=== PATIENT | female | born 1995 | race Caucasian/White ===

== ENCOUNTER 2025-05-26 22:05 | Observation (INO) | payer MEDICAID, SELFPAY ==
--- OUTSIDE RECORDS SUMMARY | 2025-05-07 10:45 | XMS_ITS | Encounter Summary ---
Author Organization [place] [address] Care Team Providers Care Corporate Webmaster Name Role Phone Dotty Lo MD Primary Care Provider [phone] Reason for Visit * Reason Comments Abdominal Pain Emesis Encounter Details Date Type Department Care Team (Late st Contact Info) Description 05/07/2025 10:45 AM EST Office Visit [facility] [address] [place] [address] [place]a horner E, DO [address] [place] [address] Viral gastroenteritis (Primary Dx); Nausea Social History Tobacco Use Types Packs/Day Years Used Date Smoking Tobacco: Former Cigarettes 0.3 13.9 0 06/2006 - 05/2020 Passive Smoke Exposure: Past Smokeless Tobacco: Never Comments: 2-3 cigarettes a d ay if that Alcohol Use Standard Drinks/Week Comments Not Currently 0 (1 standard drink = 0.6 oz pur e alcohol) occasional C Utilities Answer Date Recorded In the past 12 months has e electric, gas, oil, or water company threatened to shut off services in your home? No 05/20/2024 Overall Financial Resource Strain (CARDIA) Answe r Date Recorded How hard is it for you to pa y for the very basics like food, housing, medical care, and heating? Not very hard 05/20/2024 PHQ-2 Answer Date Recorded PHQ-2 Total Score 0 05/20/2024 [facility] [place] - Occupational Stress Questionnaire Answer Date Recorded Do you feel stress - tense, restless, nervous, or anxious, or unable to sleep at night because your mind is troubled all the time - these days? Only a little 05/20/2024 Exercise Vital Sign Answer Date Recorde d On average, how many days pe r week do you engage in moderate to strenuous exercise (like a brisk walk)? 0 days 05/20/2024 On average, how many minutes do you engage in exercise at this level? 0 min 05/20/2024 Hunger Vital Sign Answer Date Recorded Within the past 12 months, y ou worried that your food would run out before you got the money to buy more. Never true 05/20/20 24 Within the past 12 months, t he food you bought just didn't last and you didn't have money to get more. Never true 05/20/2024 [facility] IP Transportation Answer D ate Recorded In the past 12 months, has l ack of reliable transportation kept you from medical appointments, meetings, work or from getting things needed for daily living? No 05/20/2024 Sexually Active Control Partners Comments Yes Male Comments No Sex and Gender Information Value Date Recorded Sex Assigned at Not on file Legal Sex Female 5:56 AM EDT Gender Identity Not on file Sexual Orientation Not on file documented as of this encounter Last Filed Vital Signs Vital Sign Reading Time Taken Comments Blood Pressure 112/60 05/07/2025 11:29 AM EST Pulse - - Temperature 36.6 C (97.8 F) 05/07/2025 11:29 AM EST Respiratory Rate - - Oxygen Saturation - - Inhaled Oxygen Concentration - - Weight 73 kg (161 lb) 05/07/2025 11:29 AM EST Height 157.5 cm (5' 2 ) 05/07/2025 11:29 AM EST Body Mass Index 29.45 05/07/2025 11:29 AM EST documented in this encounter Functional Status * Is the person deaf or does he/she have serious difficulty hearing? Answer Date of Assessment Author No 05/21/2024 11:50 AM EST Dilia Waldron RN * Is the person blind or does he/she have serious difficulty seeing even when wearing glasses? Answer Date of Assessment Author No 05/21/2024 11:50 AM Dilia Anne RN * Does this person have serious difficulty walking or climbing stairs? Answer Date of Assessment Author No 05/21/2024 11:50 AM Dilia Anne RN * Does this person have difficulty dressing or bathing? Answer Date of Assessment Author No 05/21/2024 11:50 AM Dilia Anne RN * Because of a physical, mental or emotional condition, does this person have difficulty doing errands alone such as visiting a doctor's office or shopping? Answer Date of Assessment Author No 05/21/2024 11:50 AM Dilia Anne RN documented as of this encounter Mental Status * Because of a physical, mental or emotional condition, does this person have serious difficulty concentrating, remembering or making decisions? Answer Entry Date Author No 05/21/2024 11:50 AM Dilia Anne RN documented in this encounter Ordered Prescriptions Prescription Sig Dispense Quantity Refills Last Filled Start Date End Date ondansetron (ZOFRAN-ODT) 4 mg Oral Tablet, Rapid DissolveIndication s:Nausea Dissolve 1 Tablet by mouth every 6 hours as needed for Nausea. 30 Tablet 05/07/2025 documented in this encounter Progress Notes * Richa Barillas, - 05/07/2025 10:45 AM EST Assessment & Plan Viral gastroenteritis Flu negative. Most likely has a viral gastroenteritis. Will prescribe Zofran to take as needed for nausea. Recommend getting plenty of fluids including electrolyte drink and lots of rest. Recommend good hand hygiene as this is hot spreads. Follow-up if symptoms do not improve or worsen. Went over signs of dehydration. Went over likely course of 48 to 72 hours. Nausea FLU negative. Orders: POCT CEPHEID SARS COV-2 RNA + FLU A/B + RSV ondansetron (ZOFRAN-ODT) 4 mg Oral Tablet, Rapid Dissolve; Dissolve 1 Tablet by mouth every 6 hoursas needed for Nausea. Progress Note: Vitals: 05/07/25 1129 BP: 112/60 Temp: 97.8 ??F (36.6 ??C) Weight: 161 lb (73 kg) Height: 5' 2 (1.575 m) Body mass index is 29.45 kg/m??. SUBJECTIVE: Chief Complaint Patient presents with Abdominal Pain Emesis HPI: Presents for a sick visit. Woke up today with stomach pain/nausea. Daughter with sore throat and vomiting. Niece tested positive for Flu B and had same symptoms and spent the night with them 2 days ago. Review of Systems OBJECTIVE: Physical Exam Constitutional: General: She is not in acute distress. Appearance: Normal appearance. She is not ill-appearing. HENT: Head: Normocephalic and atraumatic. Nose: No congestion. Mouth/Throat: Pharynx: Posterior oropharyngeal erythema present. Cardiovascular: Rate and Rhythm: Normal rate and regular rhythm. Pulses: Normal pulses. Pulmonary: Effort: Pulmonary effort is normal. Breath sounds: Normal breath sounds. Abdominal: General: Abdomen is flat. There is no distension. Palpations: Abdomen is soft. Skin: General: Skin is warm and dry. Neurological: Mental Status: She is alert and oriented to person, place, and time. documented in this encounter Plan of Treatment Not on file documented as of this encounter Goals Goal Patient Goal Type Associated Problems Recent Progress Patient-Stated? Author Maintain a healthy diet, exercise regularly and maintain an ideal body weight General No Asya Craft RMA Stay Tobacco Free Lifestyle No Asya Craft RMA documented as of this encounter Procedures Procedure Name Priority Date/Time Associated Diagnosis Comments POCT CEPHEID SARS COV-2 RNA + FLU A/B + RSV Routine 05/07/2025 2:15 PM EST Nausea documented in this encounter Results * POCT CEPHEID SARS COV-2 RNA + FLU A/B + RSV (05/07/2025 2:15 PM EST) SARS COV-2 RNA Negative Negative, Invalid [facility]P [facility] INFLUENZA A Negative Negative, Invalid SEP [facility]ICE INFLUENZA B Negative Negative, Invalid SEP [facility]ICE RSV Negative Negative, Invalid SEP OFFICE Lot Number SEP OFFICE Expiration Date SEP OFFICE SeriAl # SEP OFFICE Control Line SEP OFFICE 05/07/2025 2:15 PM EST Richa E Nargsi DO POINT OF CARE TEST ORDERA BLES Final Result SEP [facility] documented in this encounter Visit Diagnoses Diagnosis Viral gastroenteritis- Primary Intestinal infection due to other organism, not elsewhere classified Nausea Nausea alone documented in this encounter Care Teams Corporate Webmaster Relationship Specialty Start Date End Date Dotty Lo MD [address] [place] [address] PCP - General Family Medicine 06/06/21 documented as of this encounter
[2025-05-26 22:09] VITALS: BP 135/118; PULSE 68; RESP 18; TEMP 36.6; O2SAT 99; BMI 30.2
--- NOTE | 2025-05-26 22:24 | CT_ITS ---
PROCEDURE INFORMATION: Exam: CT Abdomen And Pelvis With Contrast Exam date and time: 05/26/2025 10:51 PM Age: 30 years old Clinical indication: Abdominal pain; Additional info: Sudden lower abdominal pain 2 hours ago TECHNIQUE: Imaging protocol: Computed tomography of the abdomen and pelvis with contrast. Radiation optimization: All CT scans at this facility use at least one of these dose optimization techniques: automated exposure control; mA and/or kV adjustment per patient size (includes targeted exams where dose is matched to clinical indication); or iterative reconstruction. Contrast material: ISOVUE; Contrast volume: 75 ml; Contrast route: IV; COMPARISON: No relevant prior studies available. FINDINGS: Lungs: Lung bases are clear. Liver: Fatty liver changes with associated hepatomegaly measuring 20 cm. 9 mm homogeneously enhancing lesion in the right lobe of liver on axial image 36 of series 3. Liver otherwise unremarkable. Gallbladder and biliary ducts: Normal. No calcified stones. No ductal dilation. Pancreas: Normal. No ductal dilation. Spleen: Normal. No splenomegaly. Adrenal glands: Normal. No mass. Kidneys and ureters: Normal. No hydronephrosis. Stomach and bowel: Distended mildly thick-walled left upper quadrant small bowel loops measuring up to 3 cm in caliber with associated mesenteric edema and congestion centered on axial image 40 and coronal image 30. Associated encapsulation of the small bowel loops and possible mild mesenteric vascular swirling. GI tract structures otherwise unremarkable with no evident wall thickening allowing for incomplete distention. Appendix: Appendix is normal. No evidence of appendicitis. Intraperitoneal space: See Stomach and bowel finding. Vasculature: Unremarkable. No abdominal aortic aneurysm. Lymph nodes: Unremarkable. No enlarged lymph nodes. Urinary bladder: Unremarkable as visualized. Reproductive: Enlarged right ovary measuring 6.8 x 3.1 x 4.5 cm containing a 4.7 x 2.1 x 3.8 cm indeterminate cystic lesion with a density of 25. Mild adjacent edema may be present. Left ovary and uterus unremarkable. Mild free fluid in the anterior pelvis adjacent to the anterior superior bladder. Bones/joints: Unremarkable. No acute fracture. Soft tissues: Unremarkable. IMPRESSION: 1. Mildly dilated thick-walled left upper quadrant small bowel loops that appear encapsulated with associated mesenteric congestion and mild mesenteric vascular swirling. Findings might reflect enteritis but the possibility of a developing internal hernia can not be excluded. Consider short-term follow-up CT in a few hours for reassessment if surgery is not anticipated after clinical correlation. 2. Enlarged right ovary measuring 6.8 x 3.1 x 4.5 cm containing a 4.7 x 2.1 x 3.8 cm indeterminate cystic lesion with a density of 25 that might reflect a hemorrhagic cyst. Mild adjacent edema may be present. Mild free fluid adjacent to the bladder. Advise further assessment with ultrasound of the pelvis. 3. A 9 mm homogeneously enhancing lesion in the right lobe of liver. In a low-risk patient, this is most likely to be benign and no further follow-up is recommended. In a high-risk patient, follow-up MRI in 3-6 months is recommended (or earlier if warranted by the patient's specific clinical circumstances). (Reference: Corrie) REFERENCES: Corrie ROSAS, et al. Management of Incidental Liver Lesions on CT: A White Paper of the ACR Incidental Findings Committee. J Am Brice Radiol. 2017;14(11):4955-9852.
[2025-05-26 22:30] VITALS: BP 110/51; PULSE 72; O2SAT 99
[2025-05-26 22:34] LABS: Albumin Level 4.0 g/dl (3.5-5.0); Chloride 104 mmol/L (98-107); Hematocrit 37.3 % (37.0-47.0); Hemoglobin 12.4 g/dL (12.2-16.2); Immature Granulocytes % 0.1 %; Mean Corpuscular HGB Conc 33.2 g/dL (31.8-35.4); Mean Corpuscular Hemoglobin 30.1 pg (27.0-31.2); Mean Corpuscular Volume 90.5 fl (81-99); Nucleated Red Blood Cells % 0 %; Platelet Count 257 K/mm3 (142-424); Potassium 4.3 mmoL/L (3.5-5.1); Red Blood Count 4.12 M/mm3 (4.20-5.40); Red Cell Distribution Width-SD 42.6 fL; Sodium 141 mmol/L (136-145); White Blood Count 7.0 K/mm3 (4.8-10.8)
--- NOTE | 2025-05-26 22:34 | HMH.EDGENADL ---
Discharge Plan Disposition Patient Disposition: Admitted Clinical Impressions Clinical Impression: Sudden onset of severe abdominal pain, Hemorrhagic cyst of right ovary, Thickened small bowel Discharge ED Provider: Deo Riggs Adult HPI <Geetha Crenshaw MD - Last Filed: 05/26/25 23:25> General Chief complaint: Abdominal Pain Stated complaint: Abdominal Pain Time Seen by Provider: 05/26/25 22:20 Mode of Arrival: EMS Source of Information: Patient and EMS Description of Symptoms (Recalled from ER Triage Doc. by RN): patient c/o lower abdominal and pelvic pain. patient states that she hasn't pooped in 3 days and generally poops 2-3 times a day. History of Present Illness HPI narrative: Patient is a previously healthy 30-year-old female presenting today with sudden and severe acute abdominal pain that began 2 hours prior to arrival. She was at home with her 1-year-old child could not come to the emergency department immediately because she had to find care for her child. Since that time her pain has improved but has not completely gone away. It was most severe at its onset. It is diffusely across her lower abdomen. She does have a history of ovarian cyst but most recently 12 years ago was last time she was diagnosed with 1. No recurrence of the severe discomfort. She denies any history of diverticulitis etc. No urinary symptoms bowel symptoms etc. preceding this. Related Data Allergies Allergy/AdvReac Type Severity Reaction Status Date / Time No Known Allergies Allergy Verified 05/26/25 23:17 [facility] <Geetha Crenshaw MD - Last Filed: 05/26/25 23:25> [facility] Disclaimer: The information contained in this section may have been updated after the patient was seen, as this information can be updated by other users. Surgical History (Updated 05/27/25 @ 01:57 by Mercy Macdonald) No significant past surgical history Social History (Updated 05/26/25 @ 23:25 by Geetha Crenshaw MD) Smoking Status: Current every day smoker alcohol intake: never current occupational status: employed and other Travel in the last 8 weeks?: None <Geetha Crenshaw MD - Last Filed: 05/26/25 23:25> ROS Obtained: Yes All systems reviewed & no additional complaints except as documented Physical Exam <Geetha Crenshaw MD - Last Filed: 05/26/25 23:25> General General appearance: alert Respiratory Respiratory exam: Present normal lung sounds bilaterally Cardiovascular Cardiovascular exam: Present regular rate Abdominal Exam Abdominal exam: Present tenderness (Lower abdominal tenderness in the suprapubic and bilateral lower adnexal regions. No rebound or guarding) Neurological Exam Neurological exam: Present alert and oriented X3 Medical Decision Making <Geetha Crenshaw MD - Last Filed: 05/26/25 23:25> Medical Records Screening: Per USPSTF and CDC recommendations, given the prevalence of disease in our region, it is our hospital?s policy to screen for HIV and viral Hepatitis for all patients aged 18 and over and those with ongoing risk factors. Josue Inquiry Pt receiving controlled substance: No Vital Signs: 05/26/25 22:09 05/26/25 22:30 05/26/25 23:14 Temperature 97.9 F Temperature Source Oral Pulse Rate 72 59 L Pulse Rate [Left] 68 Respiratory Rate 18 Blood Pressure 110/51 L 110/69 Blood Pressure [Right Arm] 135/118 H Blood Pressure Mean 76 80 Blood Pressure Mean [Right Arm] 123 Blood Pressure Source Blood Pressure Source [Right Arm] Automatic Cuff Blood Pressure Position Blood Pressure Position [Right Arm] Sitting 02 Sat by Pulse Oximetry 99 99 98 Oxygen Delivery Method Room Air 05/26/25 23:30 05/27/25 01:11 Temperature 97.9 F Temperature Source Oral Pulse Rate 62 67 Pulse Rate [Left] Respiratory Rate 16 Blood Pressure 114/64 122/65 Blood Pressure [Right Arm] Blood Pressure Mean 83 Blood Pressure Mean [Right Arm] Blood Pressure Source Automatic Cuff Blood Pressure Source [Right Arm] Blood Pressure Position Supine Blood Pressure Position [Right Arm] 02 Sat by Pulse Oximetry 98 Oxygen Delivery Method Room Air Lab Data Lab results reviewed: Yes I reviewed the patient's lab results. Lab Results 05/26/25 22:05: WBC 7.0, RBC 4.12 L, Hgb 12.4, Hct 37.3, MCV 90.5, MCH 30.1, MCHC 33.2, RDW 12.9, Plt Count 257, MPV 10.1, Neut % (Auto) 67.5, Lymph % (Auto) 21.3, Hinds % (Auto) 8.4, Eos % (Auto) 2.1, Baso % (Auto) 0.6, Neut # (Auto) 4.7, Lymph # (Auto) 1.5, Hinds # (Auto) 0.6, Eos # (Auto) 0.2, Baso # (Auto) 0.0, Sodium 141, Potassium 4.3, Chloride 104, Carbon Dioxide 28, Anion Gap 13.3, BUN 11, Creatinine 0.70, Estimated Creat Clear 137, Estimated GFR 100, Est GFR ( Amer) 121, Glucose 80, Calcium 8.8, Total Bilirubin 0.5, AST 44 H, ALT 42, Alkaline Phosphatase 39, Total Protein 6.9, Albumin 4.0, Globulin 2.9, Albumin/Globulin Ratio 1.4, Serum HCG, Qual Negative 05/26/25 22:25: Urine Color Yellow, Urine Appearance Clear, Urine pH 7.0, Ur Specific [place] 1.010, Urine Protein Negative, Urine Glucose (UA) Negative, Urine Ketones Negative, Urine Blood Negative, Urine Nitrate Negative, Urine Bilirubin Negative, Urine Urobilinogen 0.2, Ur Leukocyte Esterase Negative, Ur Squamous Epith Cells Occasional, Amorphous Sediment 1+ 05/26/25 22:05 05/26/25 22:05 Orders (Tests/Meds): ED MEDICATIONS Generic Name Dose Route Start Last Admin Trade Name Freq PRN Reason Stop Dose Admin Acetaminophen 1,000 mg 05/27/25 01:00 Acetaminophen 500mg Tab PO 06/26/25 00:59 Q6 PRN pain Lactated Ringer's 1,000 mls @ 100 mls/hr 05/27/25 01:00 05/27/25 01:24 Lactated Ringer's 1000 Ml Bag IV 06/26/25 00:59 100 mls/hr .Q10H TASNEEM Administration Ketorolac Tromethamine 30 mg 05/27/25 01:00 05/27/25 01:24 Ketorolac 30mg/Ml Vial IV 06/01/25 00:59 30 mg Q8 PRN Administration pain Morphine Sulfate 4 mg 05/27/25 01:00 Morphine 4mg/Ml Syringe IV 06/26/25 00:59 Q4HP PRN pain Ondansetron HCl 4 mg 05/27/25 01:00 Ondansetron 4mg/2ml Vial IV 06/26/25 00:59 Q6 PRN nausea Discontinued Medications Generic Name Dose Route Start Last Admin Trade Name Freq PRN Reason Stop Dose Admin Lactated Ringer's 1,000 mls @ 999 mls/hr 05/26/25 22:30 05/26/25 22:43 Lactated Ringer's 1000 Ml Bag IV 05/26/25 23:30 999 mls/hr .Q1H1M TASNEEM Administration Iopamidol 75 ml 05/26/25 22:51 05/26/25 22:52 Iopamidol-370 (76%);100ml Bottle IV 05/26/25 22:52 75 ml ONCE ONE Administration Morphine Sulfate 4 mg 05/26/25 22:24 05/26/25 22:44 Morphine 4mg/Ml Syringe IV 05/26/25 22:25 4 mg ONCE ONE Administration Morphine Sulfate 4 mg 05/26/25 23:50 05/26/25 23:57 Morphine 4mg/Ml Syringe IV 05/26/25 23:51 4 mg ONCE ONE Administration Ondansetron HCl 4 mg 05/26/25 22:24 05/26/25 22:44 Ondansetron 4mg/2ml Vial IV 05/26/25 22:25 4 mg ONCE ONE Administration Sodium Chloride 10 ml 05/26/25 22:51 05/26/25 22:52 Sodium Chloride 0.9% 10ml Syr (Rad Only) IV 05/26/25 22:52 10 ml ONCE ONE Administration ORDERS Category Date Time Status CT abdomen pelvis w con Stat Cat Scan 05/26/25 22:24 Completed US transvaginal Stat Exams 05/26/25 23:56 Completed CBC w/Auto Diff [Complete Blood Count Auto Diff] Stat Lab 05/26/25 22:05 Completed CBC w/Auto Diff [Complete Blood Count Auto Diff] Stat Lab 05/27/25 05:00 Ordered CMP [Comprehensive Metabolic Panel] Stat Lab 05/26/25 22:05 Completed HCG Qualitative, Serum Stat Lab 05/26/25 22:05 Completed UA [Urinalysis and Microscopic] Stat Lab 05/26/25 22:25 Completed Medical Decision Narrative: Patient with above history and physical with diffuse lower abdominal discomfort but seems to be significantly proved when this began 2 hours prior. Differential includes ruptured viscus, ovarian torsion, ruptured ovarian cyst which I favor in this situation, kidney stone, bowel obstruction internal hernia etc. Will get a contrasted CT scan for further evaluation and management. Pain medicine nausea medicine have been administered and will reassess after her workup is complete. Care will be transitioned to Dr. Riggs at 11 PM to follow-up labs CT imaging and final disposition. <Deo Riggs MD - Last Filed: 05/27/25 02:04> Vital Signs: 05/26/25 22:09 05/26/25 22:30 05/26/25 23:14 Temperature 97.9 F Temperature Source Oral Pulse Rate 72 59 L Pulse Rate [Left] 68 Respiratory Rate 18 Blood Pressure 110/51 L 110/69 Blood Pressure [Right Arm] 135/118 H Blood Pressure Mean 76 80 Blood Pressure Mean [Right Arm] 123 Blood Pressure Source Blood Pressure Source [Right Arm] Automatic Cuff Blood Pressure Position Blood Pressure Position [Right Arm] Sitting 02 Sat by Pulse Oximetry 99 99 98 Oxygen Delivery Method Room Air 05/26/25 23:30 05/27/25 01:11 Temperature 97.9 F Temperature Source Oral Pulse Rate 62 67 Pulse Rate [Left] Respiratory Rate 16 Blood Pressure 114/64 122/65 Blood Pressure [Right Arm] Blood Pressure Mean 83 Blood Pressure Mean [Right Arm] Blood Pressure Source Automatic Cuff Blood Pressure Source [Right Arm] Blood Pressure Position Supine Blood Pressure Position [Right Arm] 02 Sat by Pulse Oximetry 98 Oxygen Delivery Method Room Air Lab Data Lab Results 05/26/25 22:05: WBC 7.0, RBC 4.12 L, Hgb 12.4, Hct 37.3, MCV 90.5, MCH 30.1, MCHC 33.2, RDW 12.9, Plt Count 257, MPV 10.1, Neut % (Auto) 67.5, Lymph % (Auto) 21.3, Hinds % (Auto) 8.4, Eos % (Auto) 2.1, Baso % (Auto) 0.6, Neut # (Auto) 4.7, Lymph # (Auto) 1.5, Hinds # (Auto) 0.6, Eos # (Auto) 0.2, Baso # (Auto) 0.0, Sodium 141, Potassium 4.3, Chloride 104, Carbon Dioxide 28, Anion Gap 13.3, BUN 11, Creatinine 0.70, Estimated Creat Clear 137, Estimated GFR 100, Est GFR ( Amer) 121, Glucose 80, Calcium 8.8, Total Bilirubin 0.5, AST 44 H, ALT 42, Alkaline Phosphatase 39, Total Protein 6.9, Albumin 4.0, Globulin 2.9, Albumin/Globulin Ratio 1.4, Serum HCG, Qual Negative 05/26/25 22:25: Urine Color Yellow, Urine Appearance Clear, Urine pH 7.0, Ur Specific [place] 1.010, Urine Protein Negative, Urine Glucose (UA) Negative, Urine Ketones Negative, Urine Blood Negative, Urine Nitrate Negative, Urine Bilirubin Negative, Urine Urobilinogen 0.2, Ur Leukocyte Esterase Negative, Ur Squamous Epith Cells Occasional, Amorphous Sediment 1+ Orders (Tests/Meds): ED MEDICATIONS Generic Name Dose Route Start Last Admin Trade Name Chloe PRN Reason Stop Dose Admin Acetaminophen 1,000 mg 05/27/25 01:00 Acetaminophen 500mg Tab PO 06/26/25 00:59 Q6 PRN pain Lactated Ringer's 1,000 mls @ 100 mls/hr 05/27/25 01:00 05/27/25 01:24 Lactated Ringer's 1000 Ml Bag IV 06/26/25 00:59 100 mls/hr .Q10H TASNEEM Administration Ketorolac Tromethamine 30 mg 05/27/25 01:00 05/27/25 01:24 Ketorolac 30mg/Ml Vial IV 06/01/25 00:59 30 mg Q8 PRN Administration pain Morphine Sulfate 4 mg 05/27/25 01:00 Morphine 4mg/Ml Syringe IV 06/26/25 00:59 Q4HP PRN pain Ondansetron HCl 4 mg 05/27/25 01:00 Ondansetron 4mg/2ml Vial IV 06/26/25 00:59 Q6 PRN nausea Discontinued Medications Generic Name Dose Route Start Last Admin Trade Name Chloe PRN Reason Stop Dose Admin Lactated Ringer's 1,000 mls @ 999 mls/hr 05/26/25 22:30 05/26/25 22:43 Lactated Ringer's 1000 Ml Bag IV 05/26/25 23:30 999 mls/hr .Q1H1M TASNEEM Administration Iopamidol 75 ml 05/26/25 22:51 05/26/25 22:52 Iopamidol-370 (76%);100ml Bottle IV 05/26/25 22:52 75 ml ONCE ONE Administration Morphine Sulfate 4 mg 05/26/25 22:24 05/26/25 22:44 Morphine 4mg/Ml Syringe IV 05/26/25 22:25 4 mg ONCE ONE Administration Morphine Sulfate 4 mg 05/26/25 23:50 05/26/25 23:57 Morphine 4mg/Ml Syringe IV 05/26/25 23:51 4 mg ONCE ONE Administration Ondansetron HCl 4 mg 05/26/25 22:24 05/26/25 22:44 Ondansetron 4mg/2ml Vial IV 05/26/25 22:25 4 mg ONCE ONE Administration Sodium Chloride 10 ml 05/26/25 22:51 05/26/25 22:52 Sodium Chloride 0.9% 10ml Syr (Rad Only) IV 05/26/25 22:52 10 ml ONCE ONE Administration ORDERS Category Date Time Status CT abdomen pelvis w con Stat Cat Scan 05/26/25 22:24 Completed US transvaginal Stat Exams 05/26/25 23:56 Completed CBC w/Auto Diff [Complete Blood Count Auto Diff] Stat Lab 05/26/25 22:05 Completed CBC w/Auto Diff [Complete Blood Count Auto Diff] Stat Lab 05/27/25 05:00 Ordered CMP [Comprehensive Metabolic Panel] Stat Lab 05/26/25 22:05 Completed HCG Qualitative, Serum Stat Lab 05/26/25 22:05 Completed UA [Urinalysis and Microscopic] Stat Lab 05/26/25 22:25 Completed Medical Decision Narrative: Patient with above history and physical with diffuse lower abdominal discomfort but seems to be significantly proved when this began 2 hours prior. Differential includes ruptured viscus, ovarian torsion, ruptured ovarian cyst which I favor in this situation, kidney stone, bowel obstruction internal hernia etc. Will get a contrasted CT scan for further evaluation and management. Pain medicine nausea medicine have been administered and will reassess after her workup is complete. Care will be transitioned to Dr. Riggs at 11 PM to follow-up labs CT imaging and final disposition. Keely HACKETT: I assumed care of the patient at the time of handoff from the prior provider. On reassessment patient continues to have some pain, was given [address] imaging was independently turbid by me. Most concerning is a large right ovarian cyst with mixed density concerning for hemorrhagic cyst. Additionally, patient has some edematous and swirled small bowel in the left upper quadrant which could be consistent with enteritis or possible internal hernia. On exam, patient has actually no tenderness in the left upper quadrant and reports that her pain has been localized to the lower abdomen throughout. Given this, my concern for significant pathology in the left upper quadrant is much lower. Transvaginal ultrasound was obtained to assess for possible torsion versus hemorrhagic cyst. On independent interpretation, CT scan shows large right ovarian cyst with free fluid concerning for hemorrhagic cyst. No evidence of torsion. I discussed these findings with [facility]ERCOATER. We will plan to admit for observation and to assess need for possible surgical intervention. Critical Care <Geetha Crenshaw MD - Last Filed: 05/26/25 23:25> Critical Care Time Critical Care Time: No
[2025-05-26 22:36] LABS: Blood Urea Nitrogen 11 mg/dl (7-17); Creatinine Clearance Estimated 137 mL/min (50-200); Creatinine,Serum 0.70 mg/dl (0.52-1.04); Estimated Glomerular Filt Rate 100 ml/min (>60); GFR (African American) 121 ML/MIN (>60); HCG Qualitative, Serum Negative (Negative)
[2025-05-26 22:37] LABS: Alanine Aminotransferase 42 U/L (12-78); Albumin/Globulin Ratio 1.4 (1.1-1.8); Alkaline Phosphatase 39 U/L (38-126); Anion Gap 13.3 mEq/L (5-15); Aspartate Amino Transferase 44 U/L (14-36); Bilirubin,Total 0.5 mg/dl (0.2-1.3); Calcium 8.8 mg/dl (8.4-10.2); Carbon Dioxide 28 mmol/L (22.0-30.0); Globulin 2.9 g/dL (1.3-3.2); Glucose 80 mg/dl (74-100); Total Protein,Serum 6.9 g/dl (6.3-8.2)
[2025-05-26] MEDS: LACTATED RINGERS 1000ML 1,000 ML 999 ML IV (22:43)
[2025-05-26] MEDS: MORPHINE 4MG/ML SYRINGE 4 MG IV ×2 (22:44→23:57)
[2025-05-26] MEDS: ONDANSETRON 4MG/2ML VIAL 4 MG IV (22:44)
[2025-05-26] MEDS: SODIUM CHLORIDE 0.9% 10ML SYR (RAD ONLY) 10 ML IV (22:52)
[2025-05-26] MEDS: IOPAMIDOL-370 (76%);100ML BOTTLE 75 ML IV (22:52)
[2025-05-26 23:05] LABS: Microscopic, Urine URINE MICROSCOPIC (MICROSCOPIC)
[2025-05-26 23:09] LABS: Bilirubin,Urine Negative (Negative); Color,Urine YELLOW (Yellow); Glucose,Urine (UA) Negative (Negative); Ketones,Urine Negative (Negative); Leukocyte Esterase,Urine Negative (Negative); PH,Urine 7.0 (5.0-8.5); Protein,Urine Negative (Negative); Specific Gravity, Urine 1.010 (1.005-1.030); Urobilinogen,Urine 0.2 EU/dl (0.2)
[2025-05-26 23:14] VITALS: BP 110/69; PULSE 59; O2SAT 98
[2025-05-26 23:17] LABS: Squamous Epithelial Cell,Urine Occasional #/hpf (0-5)
[2025-05-26 23:18] LABS: Amorphous Sediment,Urine 1+ /lpf
[2025-05-26 23:30] VITALS: BP 114/64; PULSE 62; O2SAT 98
--- OUTSIDE RECORDS SUMMARY | 2025-05-26 23:36 | XMS_ITS | Clinical Summary ---
Author Organization [facility] Address [address] [place] [address] Phone Care Team Providers Care Anthropologist Physical Name Role Phone Dotty Lo MD Primary Care Provider [phone] Allergies No known active allergies Medications ibuprofen (ADVIL;MOTRIN) 600 mg Oral Tablet Take 1 Tablet by mouth every 6 hours as needed for Pain. 30 Tablet 05/20/2024 Active ipratropium (ATROVENT) 42 mcg (0.06 %) Nasl Johnston, Non-Aerosol 2 Sprays by Nasal route 3 times daily. 15 mL 09/02/2024 Active ondansetron (ZOFRAN-ODT) 4 mg Oral Tablet, Rapid DissolveIndicat ions:Nausea Dissolve 1 Tablet by mouth every 6 hours as needed for Nausea. 30 Tablet 05/07/2025 Active Active Problems Problem Noted Date Diagnosed Date Decreased movement aff ecting management of in third trimester, fetus 1 05/19/2024 Term 05/20/2020 Labor and delivery indication for care or interv ention 05/20/2020 GBS bacteriuria 05/20/2020 AR (allergic rhinitis) 09/27/2010 Resolved Problems Problem Noted Date Diagnosed Date Resolved Date Dysmenorrhea 02/03/2015 05/31/2017 Overview (06/02/2015): OCP's ordered. Encounters Date Type Department Care Team Description 05/07/2025 10:45 AM EST Office Visit [facility] [address] [place] [address] Richa Barillas, Viral gastroenteritis (Primary Dx); Nausea from Last 3 Months Immunizations Immunization Administration Dates Next Due DTP/HiB 02/17/1998,1997 DTaP 03/19/2001, 9,02/17/1998,08/13,1997 HPV 9 Valent 02/03/2015 HPV Quadrivalent 10/04/2010,01/31/2010 Hepatitis A, Ped/Adol, 2 Dose 02/03/2015 Hepatitis B (Recombinant), Adjuvanted 01/20/2024 Hepatitis B, Ped/Adol 02/17/1998,1997 Hepatitis B, Unspecified Formulation 12/2016,02/17/1998,1997,03/11 HiB, Unspecified Formulation 09/16/1998, 08/19/1998,1997,04/29 IPV 03/19/2001, 9,1997,04/29 Influenza Seasonal Injectable PF 2024,02/22 Influenza Vaccine Quadrivalent PF 05/10/2023, Influenza Vaccine, Unspecifi ed Formulation 03/26/2012 MMR 03/19/2001,09/16/1998 Meningococcal C Conjugate-In active Vaccine 02/03/2015 Meningococcal Conjugate 02/03/2015 Tdap 04/29/2020, 7,04/20/2008,03/19 Varicella 02/03/2015,09/16/1998 Medical History Medical History Date Comments Dysmenorrhea 02/03/2015 Family History Medical History Relation Name Comments Heart Failure Mother pancreatic cancer Paternal Grandmother Colon Cancer Neg Hx Esophageal Cancer Neg Hx Relation Name Status Comments Father Alive Mother Alive Paternal Grandmother Social History Tobacco Use Types Packs/Day Years Used Date Smoking Tobacco: Former Cigarettes 0.3 13.9 0 06/2006 - 05/2020 Passive Smoke Exposure: Past Smokeless Tobacco: Never Comments: 2-3 cigarettes a d ay if that Alcohol Use Standard Drinks/Week Comments Not Currently 0 (1 standard drink = 0.6 oz pur e alcohol) occasional [employer] Utilities Answer Date Recorded In the past 12 months has th e electric, gas, oil, or water company threatened to shut off services in your home? No 05/20/2024 Overall Financial Resource Strain (CARDIA) Answe r Date Recorded How hard is it for you to pa y for the very basics like food, housing, medical care, and heating? Not very hard 05/20/2024 PHQ-2 Answer Date Recorded PHQ-2 Total Score 0 05/20/2024 [facility] - Occupational Stress [...] money to get more. Never true 05/20/2024 [facility] IP Transportation Answer D ate Recorded [...] on file Sexual Orientation Not on file Obstetrics History Para Term AB IAB SAB Ectopic Multiple Livin g Live Births 3 3 3 0 0 0 0 0 0 3 3 Date Outcome GA Total Labor Labor/2nd/3rd Weight Sex Type Anes PTL Berta A1 A5 Name Clin 2016 Term F Vag-V acuum Epidur al Y Livin g Delivery Location:[facility] 2019 Term 39w 3d 0h 04m 0h 04m 6 lb 11.2 oz (3.04 kg) F Vag-S pont Epidur al N Livin g 8 9 LISA DELUNA NA GIRL Criselda Hogan ca, CNM Delivery Location:[facility] 2023 Term 40w 2d 0h 06m 0h 06m 7 lb 3.5 oz (3.275 kg) F Vag-S pont Epidur al N Livin g 8 9 Rose Erickson, HORSE TRADER Complications:Decreased feta l movement affecting management of in third trimester, fetus 1 Delivery Location:[facility] ([facility]) Last Filed Vital Signs Vital Sign Reading Time Taken Comments Blood Pressure 112/60 05/07/2025 11:29 AM EST Pulse 85 09/02/2024 5:05 PM EDT Temperature 36.6 C (97.8 F) 05/07/2025 11:29 AM EST Respiratory Rate 18 09/02/2024 5:05 PM EDT Oxygen Saturation 97% 09/02/2024 5:05 PM EDT Inhaled Oxygen Concentration - - Weight 73 kg (161 lb) 05/07/2025 11:29 AM EST Height 157.5 cm (5' 2 ) 05/07/2025 11:29 AM EST Body Mass Index 29.45 05/07/2025 11:29 AM EST Plan of Treatment Health Maintenance Due Date Last Done Comments Annual Wellness Exam 12/19/2024 12/20/2023, 02/04/20 15 Cervical Cancer Screening 01/08/2025 Pap Smear 01/08/2025 01/08/2022, 10/12/2019 COVID-19 Vaccine ( season) 2025 Influenza Vaccine (#1) 2025 , 05/10/2023, 05/22/2020, Additional history exists DTaP/TDaP/Td (9 - Td or Tdap) 04/29/2030 04/29/2020, 01/31/2017, 04/20/2008, Additional history exists Chlamydia Screening Discontinued 11/08/2023, 10/03/2023, 01/10/2020, Additional history exists Hepatitis B Vaccine Completed 01/20/2024, 08/28/2016, 02/17/1998, Additional history exists Meningococcal B Vaccine Aged Out No l onger eligible based on patient's age to complete this topic Pneumococcal Vaccine 0-49 Aged Out No longer eligible based on patient's age to complete this topic Goals Goal Patient Goal Type Associated Problems Recent Progress Patient-Stated? Author Maintain a healthy diet, exercise regularly and maintain an ideal body weight General No Asya Craft RMA Stay Tobacco Free Lifestyle No Asya Craft RMA Procedures Procedure Name Priority Date/Time Associated Diagnosis Comments POCT CEPHEID SARS COV-2 RNA + FLU A/B + RSV Routine 05/07/2025 2:15 PM EST Nausea CHLAMYDIA/GC BY TMA STAT 11/08/2023 9 :43 PM EDT from Last 3 Months or Most Recently Relevant to Health Maintenance Results * POCT CEPHEID SARS COV-2 RNA [...] SEP OFFICE 05/07/2025 2:15 PM EST Richa Barillas DO POINT OF CARE TEST ORDERA BLES Final Result SEP OFFICE * CHLAMYDIA/GC BY [facility] (11/08/2023 9:43 PM EDT) Chlamydia trachomatis Not Detected Not Detected 11/09/2023 2:55 AM EDT [facility] Neisseria gonorrhoeae Not Detected Not Detected 11/09/2023 2:55 AM EDT [facility] Swab SPECIMEN FROM UTERINE CERVIX / Unknown 11/08/2023 9:43 PM EDT 11/08/2023 9:47 PM EDT Narrative [facility] - 11/09/2023 2:55 AM EDT Testing methodology is truck car and bus cleaner mediated amplification (TMA) using the Aptima Combo 2 assay from [employer]. A negative result does not completely rule out a Chlamydia trachomatis or Neisseria gonorrhoeae infection due to potential inhibitors or levels present below the limit of detection by this assay. Results are dependent on proper collection and transport of specimen. This test is indicated for medical purposes only and should not be used for legal or forensic purposes. The performance characteristics of this assay were validated by the testing laboratory. This assay is FDA cleared to test the following specimens: clinician-collected endocervical, vaginal, male urethral swab specimens, rectal swabs, and throat/pharyngeal swabs; patient collected vaginal specimens within a clinic setting; Thin Prep Specimens in PreservCyt Solution; and first-stream, unpreserved male and female urine specimens. Detailed methodology is available upon request. Babak Baron HORSE TRADER MICROBIOLOGY - GENERAL O RDERABLES Final Result [facility] [address] [facility] , [place] [address] from Last 3 Months or Most Recently Relevant to Health Maintenance Insurance MDR Advance Directives For more information, please contact: [phone] * Full Code (Latest Code Status on File) Date Activated Date Inactivated Comments 05/19/2024 1:33 PM 05/21/2024 5:51 PM * Full Code Date Activated Date Inactivated Comments 05/20/2020 9:18 PM 05/22/2020 8:17 PM Care Teams Anthropologist Physical Relationship Specialty Start Date End Date Dotty Lo MD [address] [place] [address] PCP - General Family Medicine 06/06/21
--- OUTSIDE RECORDS SUMMARY | 2025-05-26 23:36 | XMS_ITS | Clinical Summary ---
Author Organization [facility] Address [address] [place] [address] Care Team Providers Care Motor Tune Up Specialist Name Role Phone Dotty Lo MD Primary Care Provider [phone] Allergies No known active allergies Medications No known medications Active Problems Problem Noted Date Diagnosed Date Threatened , antepartum 10/24/2024 Resolved Problems Problem Noted Date Diagnosed Date Resolved Date Supervision of normal 10/20/2024 10/24/2024 Overview (10/20/2024): Nurse Midwives for care PNL: CULTURE RESULTS Date Value Ref Range Status 10/06/2024 Final Multiple bacterial species isolated from urine consistent with urogenital commensal organisms. MICRONOTE Date Value Ref Range Status 10/06/2024 Final Tested at: [facility], [address] [place] [address] Pap- GC/CT- Genetic carrier screen: NIPT: Dating sono: Anatomy sono: FLU- COVID- T-DAP- RSV- 28w labs: (date), GCT- No results found for: GLC1 , TpAb- , H/H- , plt- Maternity consent: Breast/Bottle: GBS: No results found for: GROUPB ] Delivery plan: IOL: Possible , not yet confirmed 10/06/2024 10/24/2024 Social History Tobacco Use Types Packs/Day Years Used Date Smoking Tobacco: Never Smokeless Tobacco: Never Tobacco Cessation:Counseling Given: Not Answered Alcohol Use Standard Drinks/Week Comments Not Currently 0 (1 standard drink = 0.6 oz pur e alcohol) Food Insecurities Answer Date Recorded Within the past 12 months, d id you worry that your food would run out before you got money to buy more? No 10/22/2024 Within the past 12 months, d id the food you bought just not last and you didn't have money to get more? No 10/22/2024 Housing/Utilities Answer Date Recorded Are you worried about losing your housing? No 10/22/2024 Within the past 12 months, h ave you ever stayed: outside, in a car, in a tent, in an overnight senior living, or temporarily in someone else's home (i.e. couch-surfing)? No 10/22/2024 Within the past 12 months, h ave you been unable to get utilities (heat, electricity) when it was really needed? No 025 Interpersonal Safety Answer Date Record ed Do you feel physically or em otionally unsafe where you currently live? No 10/22/2024 Within the past 12 months, h ave you been hit, slapped, kicked or otherwise physically hurt by anyone? No 10/22/2024 Within the past 12 months, h ave you been humiliated or emotionally abused by anyone? No 10/22/2024 Transportation Answer Date Recorded Within the past 12 months, h as a lack of transportation kept you from medical appointments or from doing things needed for daily living? No 10/22/2024 Utilities Answer Date Recorded Are you worried about losing your housing? No 10/22/2024 Within the past 12 months, h ave you ever stayed: outside, in a car, in a tent, in an overnight senior living, or temporarily in someone else's home (i.e. couch-surfing)? No 10/22/2024 Within the past 12 months, h ave you been unable to get utilities (heat, electricity) when it was really needed? No 025 Comments Unknown Sex and Gender Information Value Date Recorded Sex Assigned at Not on file Legal Sex Female 6:03 PM EDT Gender Identity Female 10/22/2024 11:44 AM EDT Sexual Orientation Not on file Last Filed Vital Signs Vital Sign Reading Time Taken Comments Blood Pressure 110/70 10/27/2024 3:11 PM EDT Pulse - - Temperature - - Respiratory Rate - - Oxygen Saturation - - Inhaled Oxygen Concentration - - Weight 73.9 kg (163 lb) 10/27/2024 3:11 PM EDT Height 157.5 cm (5' 2 ) 10/27/2024 3:11 PM EDT Body Mass Index 29.81 10/27/2024 3:11 PM EDT Plan of Treatment Health Maintenance Due Date Last Done Comments Pap Screening 2018 Influenza Vaccine (#1) 2025 4, 05/10/2023, 05/22/2020, Additional history exists DTap,Tdap,and Td (9 - Td or Tdap) 04/29/2030 04/29/2020, 01/31/2017, 04/20/2008, Additional history exists RSV Vaccine (60+ or ) (1 - 1-dose 75+ series) 2072 HPV Completed 02/03/2015, 09/22, 01/31/2010 Meningococcal conjugate valent 4 (MCV4) Completed 02/03/2015 Pneumococcal 0-49 Aged Out No longer eligible based on patient's age to complete this topic RSV Immunization (<20 months) Aged Out No longer eligible based on patient's age to [place] [id number] [facility] [id number] Care Teams Motor Tune Up Specialist Relationship Specialty Start Date End Date Dotty Lo MD [facility] [address] [place] [address] PCP - General Family Medicine 10/06/24
--- NOTE | 2025-05-26 23:56 | US_ITS ---
PROCEDURE INFORMATION: Exam: US Duplex Artery or Vein of the Abdominal and/or Reproductive Organs, Limited Ovaries Exam date and time: 05/26/2025 11:53 PM Age: 30 years old Clinical indication: Pain and abnormal findings; Abnormal imaging test; Pelvic pain; Additional info: Lower abd pain, large cyst TECHNIQUE: Imaging protocol: Real-time duplex ultrasound scan of the arterial or venous flow with montero scale, color Doppler flow and spectral waveform analysis with image documentation. Limited duplex exam focused on the ovaries. Duplex exam was performed to evaluate for torsion and other vascular conditions. COMPARISON: CT ABDOMEN PELVIS W CON 05/26/2025 10:51 PM FINDINGS: Right ovary/adnexa: Normal arterial or venous Doppler waveforms in the ovary. No ovarian torsion. Left ovary/adnexa: Normal arterial or venous Doppler waveforms in the ovary. No ovarian torsion. IMPRESSION: Normal duplex of the ovaries. No evidence of ovarian torsion. PROCEDURE INFORMATION: Exam: US Pelvis, Transvaginal, Non-Obstetric Exam date and time: 05/26/2025 11:53 PM Age: 30 years old Clinical indication: Pain and abnormal findings; Abnormal imaging test; Pelvic pain; Additional info: Lower abd pain, large cyst TECHNIQUE: Imaging protocol: Real-time transvaginal pelvic (non-obstetric) ultrasound with image documentation. Transvaginal imaging was used for better evaluation of the endometrium, adnexa, and/or cervix. COMPARISON: CT ABDOMEN PELVIS W CON 05/26/2025 10:51 PM FINDINGS: Uterus: Uterus is normal. Endometrial stripe is normal. Uterus measures 7.9 x 3.9 x 5.3 cm. Endometrium measures 10 mm. Right ovary/adnexa: Enlarged right ovary measuring 4.9 x 4.4 x 4.0 cm. Right ovary contains a complex cystic lesion with internal solid-appearing components and a fluid level measuring 4.0 x 3.5 x 2.6 cm with no internal blood flow. Normal ovarian blood flow on color Doppler around the periphery of the cystic lesion. Left ovary/adnexa: Normal. No mass. Normal ovarian blood flow on color Doppler. Left ovary measures 2.6 x 2.0 x 1.8 cm. Urinary bladder: Urinary bladder is limited. Intraperitoneal space: Moderate amounts of free fluid noted superior to the uterus and around the right ovary. IMPRESSION: 1. Enlarged right ovary containing a 4 cm complex cystic lesion most consistent with a hemorrhagic cyst. Advise follow-up endovaginal ultrasound in 8 weeks to ensure resolution. 2. Moderate amount of pelvic free fluid.
--- NOTE | 2025-05-27 01:10 | PC.NURSE ---
Report received from ED RN at this time
[2025-05-27 01:11] VITALS: BP 122/65; PULSE 67; RESP 16; TEMP 36.6
--- NOTE | 2025-05-27 01:15 | PC.NURSE ---
Pt brought to room 279 via wheelchair at this time by Kathy HAAS. Pt is alert and oriented, oriented to the room and the nurse call light is within reach. Pt ambulated to the bathroom to void.
[2025-05-27 01:20] VITALS: BP 111/78; PULSE 68; RESP 18; TEMP 36.7; O2SAT 97
[2025-05-27] MEDS: LACTATED RINGERS 1000ML 1,000 ML 100 ML IV (01:24)
[2025-05-27] MEDS: KETOROLAC 30MG/ML VIAL 30 MG IV ×2 (01:24→09:31)
[2025-05-27] MEDS: MORPHINE 4MG/ML SYRINGE 4 MG IV (03:44)
[2025-05-27] MEDS: ONDANSETRON 4MG/2ML VIAL 4 MG IV (03:44)
--- NOTE | 2025-05-27 03:44 | PC.NURSE ---
Pt given pain meds per request (see EMAR) and a K-pad is set up for pt to use prn. Pt ambulated to the bathroom to void at this time
[2025-05-27 03:49] VITALS: BP 96/53; PULSE 67; RESP 16; TEMP 36.6; O2SAT 96
--- NOTE | 2025-05-27 03:54 | PC.NURSE ---
Dr Irving called to check on pt at this time. No new orders but he confirmed that pt is to remain NPO at this time.
[2025-05-27 04:49] LABS: Hematocrit 36.1 % (37.0-47.0); Hemoglobin 11.7 g/dL (12.2-16.2); Immature Granulocytes % 0.3 %; Mean Corpuscular HGB Conc 32.4 g/dL (31.8-35.4); Mean Corpuscular Hemoglobin 29.5 pg (27.0-31.2); Mean Corpuscular Volume 90.9 fl (81-99); Nucleated Red Blood Cells % 0 %; Platelet Count 290 K/mm3 (142-424); Red Blood Count 3.97 M/mm3 (4.20-5.40); Red Cell Distribution Width-SD 41.9 fL; White Blood Count 7.2 K/mm3 (4.8-10.8)
[2025-05-27] MEDS: ACETAMINOPHEN 500MG TAB 1000 MG PO (06:46)
--- NOTE | 2025-05-27 06:58 | PC.NURSE ---
Report given to Ravi Tariq RN
[2025-05-27 08:55] VITALS: BP 112/49; PULSE 62; RESP 17; TEMP 36.8; O2SAT 96
--- NOTE | 2025-05-27 09:08 | EXP.HPDC ---
General Admission date:: 05/27/25 Discharge date: 05/27/25 *Admission Date: 05/27/25 *Chief complaint: Abdominal pain *History of present illness: Ms Mckenzie Montano is a 30 yo P3013 who presented to the ED with complaint of acute severe abdominal pain, greater in RLQ. She admits to associated nausea. No vomiting. She admits pain is worse with movement and improves with rest. She was admitted overnight for observation. CT abd/pelvis demonstrated: Mildly dilated thick-walled left upper quadrant small bowel loops that appear encapsulated with associated mesenteric congestion and mild mesenteric vascular swirling. Findings might reflect enteritis but the possibility of a developing internal hernia can not be excluded. Consider short-term follow-up CT in a few hours for reassessment if surgery is not anticipated after clinical correlation. 2. Enlarged right ovary measuring 6.8 x 3.1 x 4.5 cm containing a 4.7 x 2.1 x 3.8 cm indeterminate cystic lesion with a density of 25 that might reflect a hemorrhagic cyst. Mild adjacent edema may be present. Mild free fluid adjacent to the bladder. Advise further assessment with ultrasound of the pelvis. Pelvic ultrasound demonstrated: Enlarged right ovary containing a 4 cm complex cystic lesion most consistent with a hemorrhagic cyst. Advise follow-up endovaginal ultrasound in 8 weeks to ensure resolution. 2. Moderate amount of pelvic free fluid. History of x 3 at [facility]. Her last baby was born a little over 1 year ago. History of early SAB a few months ago. No D&C was needed. Periods are irregular. Last period was the middle of last month. She is not using any hormonal contraception. She admits to chronic GI problems. She was taking pancreatic enzymes but stopped taking them a while ago. She admits to constipation. She hasn't had a BM in several days but usually has multiple BMs/day. Denies surgical history. She is a smoker and smokes < 1/2 ppd. No bladder complaints. Resting comfortably this morning. She admits pain is better but she still feels sharp pain with activity. Voiding without difficulty and passing flatus. Denies fever/chills. She is requesting breakfast. [facility] Disclaimer: The information contained in this section may have been updated after the patient was seen, as this information can be updated by other users. Surgical History (Updated 05/27/25 @ 01:57 by Mercy Macdonald) No significant past surgical history Social History (Updated 05/27/25 @ 01:56 by Mercy Macdonald) Smoking Status: Current every day smoker alcohol intake: never current occupational status: employed and other Travel in the last 8 weeks?: None Contact w/someone who lives/traveled outside US past 30 days?: No Exposure to someone with infectious disease in past 14 days?: No Do you have a fever (greater than 100.4 F or 38 C)?: No Have you tested positive for COVID-19?: No Exposed to someone with COVID-19 in past 14 days?: No Do you have a sore throat?: No Other Medical History Have you received the Flu Vaccine for this season: No Have you received the Pneumonia Vaccine: No Review of Systems Review of Systems Review of systems:: pertinent systems reviewed and negative unless documented below *Gastrointestinal Gastrointestinal: Reports as per HPI, Reports abdominal pain and Reports constipation Exam Data for Last 24 hours Vital signs and Labs for Last 24 Hours: Temp Pulse Resp BP Pulse Ox O2 Del Method 97.9 F 67 16 96/53 L 96 Room Air 05/27/25 03:49 05/27/25 03:49 05/27/25 03:49 05/27/25 03:49 05/27/25 03:49 05/27/25 07:23 Laboratory Results - last 24 hr 05/26/25 22:05: WBC 7.0, RBC 4.12 L, Hgb 12.4, Hct 37.3, MCV 90.5, MCH 30.1, MCHC 33.2, RDW 12.9, Plt Count 257, MPV 10.1, Neut % (Auto) 67.5, Lymph % (Auto) 21.3, [place] % (Auto) 8.4, Eos % (Auto) 2.1, Baso % (Auto) 0.6, Neut # (Auto) 4.7, Lymph # (Auto) 1.5, [place] # (Auto) 0.6, Eos # (Auto) 0.2, Baso # (Auto) 0.0, Sodium 141, Potassium 4.3, Chloride 104, Carbon Dioxide 28, Anion Gap 13.3, BUN 11, Creatinine 0.70, Estimated Creat Clear 137, Estimated GFR 100, Est GFR ( Amer) 121, Glucose 80, Calcium 8.8, Total Bilirubin 0.5, AST 44 H, ALT 42, Alkaline Phosphatase 39, Total Protein 6.9, Albumin 4.0, Globulin 2.9, Albumin/Globulin Ratio 1.4, Serum HCG, Qual Negative 05/26/25 22:25: Urine Color Yellow, Urine Appearance Clear, Urine pH 7.0, Ur Specific [place] 1.010, Urine Protein Negative, Urine Glucose (UA) Negative, Urine Ketones Negative, Urine Blood Negative, Urine Nitrate Negative, Urine Bilirubin Negative, Urine Urobilinogen 0.2, Ur Leukocyte Esterase Negative, Ur Squamous Epith Cells Occasional, Amorphous Sediment 1+ 05/27/25 04:42: WBC 7.2, RBC 3.97 L, Hgb 11.7 L, Hct 36.1 L, MCV 90.9, MCH 29.5, MCHC 32.4, RDW 12.8, Plt Count 290, MPV 9.5, Neut % (Auto) 61.7, Lymph % (Auto) 28.4, [place] % (Auto) 6.8, Eos % (Auto) 2.1, Baso % (Auto) 0.7, Neut # (Auto) 4.4, Lymph # (Auto) 2.0, [place] # (Auto) 0.5, Eos # (Auto) 0.2, Baso # (Auto) 0.1 I & O for Last 24 hours: Intake & Output 05/24/25 05/25/25 05/26/25 05/27/25 23:59 23:59 23:59 23:59 Output Total 1400 / 1400 Balance -1400 / -1400 Weight 160 lb Constitutional Constitutional: no acute distress and cooperative *Routine HEENT Exam Head: Present normocephalic and atraumatic Eye: Absent conjunctivae pink ENT: Present mucous membranes moist *Routine Neck Exam Neck: Present full ROM *Routine Respiratory Exam Respiratory: Present CTA bilaterally and normal respiratory effort *Routine Cardiovascular Exam Cardiovascular: Present RRR *Routine Abdominal Exam Abdominal: Present soft and normoactive bowel sounds; Absent tenderness, distended, rebound, guarding or mass *Routine Rectal Exam Rectal:: deferred *Routine Genitalia Exam Genitalia:: deferred *Routine Extremities Exam Extremities: Present full ROM; Absent edema or calf tenderness *Routine Neurological Exam Neurological: Present alert, moving all extremities and normal speech Routine Psychiatric Exam Psychiatric: Present normal affect and cooperative Meds Home Medications and Allergies Home Medications ?Medication ?Instructions ?Recorded ?Confirmed ?Type hydrocodone 5 mg-acetaminophen 325 1 tab PO Q6H PRN pain #12 tabs 05/27/25 Rx mg tablet ibuprofen 800 mg tablet 800 mg PO Q8H PRN pain #20 tabs 05/27/25 Rx New Prescriptions to Start Prescriptions: hydrocodone-acetaminophen Canan,Nicky ibuprofen Canan,Nicky Allergies Allergy/AdvReac Type Severity Reaction Status Date / Time No Known Allergies Allergy Verified 05/26/25 23:17 Hospital Course Hospital Course Hospital Course: Ms Mckenzie Montano is a 30 yo P3013 who presented to the ED with complaint of acute severe abdominal pain, greater in RLQ. She admits to associated nausea. No vomiting. She admits pain is worse with movement and improves with rest. She was admitted overnight for observation. CT abd/pelvis demonstrated: Mildly dilated thick-walled left upper quadrant small bowel loops that appear encapsulated with associated mesenteric congestion and mild mesenteric vascular swirling. Findings might reflect enteritis but the possibility of a developing internal hernia can not be excluded. Consider short-term follow-up CT in a few hours for reassessment if surgery is not anticipated after clinical correlation. 2. Enlarged right ovary measuring 6.8 x 3.1 x 4.5 cm containing a 4.7 x 2.1 x 3.8 cm indeterminate cystic lesion with a density of 25 that might reflect a hemorrhagic cyst. Mild adjacent edema may be present. Mild free fluid adjacent to the bladder. Advise further assessment with ultrasound of the pelvis. Pelvic ultrasound demonstrated: Enlarged right ovary containing a 4 cm complex cystic lesion most consistent with a hemorrhagic cyst. Advise follow-up endovaginal ultrasound in 8 weeks to ensure resolution. 2. Moderate amount of pelvic free fluid. History of x 3 at [facility]. Her last baby was born a little over 1 year ago. History of early SAB a few months ago. No D&C was needed. Periods are irregular. Last period was the middle of last month. She is not using any hormonal contraception. She admits to chronic GI problems. She was taking pancreatic enzymes but stopped taking them a while ago. She admits to constipation. She hasn't had a BM in several days but usually has multiple BMs/day. Denies surgical history. She is a smoker and smokes < 1/2 ppd. No bladder complaints. Resting comfortably/sleeping this morning. She admits pain is better but she still feels sharp pain with activity. Voiding without difficulty and passing flatus. Denies fever/chills. She is requesting breakfast. Vital signs have been stable, afebrile. Non surgical abdomen on exam. No abdominal tenderness to palpation or with stethoscope pressure when listening to bowel sounds. She admits pain is primarily present with activity this morning. Labs stable. Discussed hemorrhagic cyst and constipation. She states she has Miralax at home. Discharge home with pain medicine and instructed her to follow-up in the office next week or follow-up with her journalists and other writers at [facility] next week. Plan for repeat pelvic ultrasound in 6-8 weeks. She voiced agreement and understanding. Results Data Completed and Pending Labs on day of discharge: Labs from last 24 hours 05/27/25 05/26/25 05/26/25 04:42 22:25 22:05 WBC 7.2 7.0 RBC 3.97 L 4.12 L Hgb 11.7 L 12.4 Hct 36.1 L 37.3 MCV 90.9 90.5 MCH 29.5 30.1 MCHC 32.4 33.2 RDW 12.8 12.9 Plt Count 290 257 MPV 9.5 10.1 Neut % (Auto) 61.7 67.5 Lymph % (Auto) 28.4 21.3 [place] % (Auto) 6.8 8.4 Eos % (Auto) 2.1 2.1 Baso % (Auto) 0.7 0.6 Neut # (Auto) 4.4 4.7 Lymph # (Auto) 2.0 1.5 [place] # (Auto) 0.5 0.6 Eos # (Auto) 0.2 0.2 Baso # (Auto) 0.1 0.0 Sodium 141 Potassium 4.3 Chloride 104 Carbon Dioxide 28 Anion Gap 13.3 BUN 11 Creatinine 0.70 Estimated Creat Clear 137 Estimated GFR 100 Est GFR ( Amer) 121 Glucose 80 Calcium 8.8 Total Bilirubin 0.5 AST 44 H ALT 42 Alkaline Phosphatase 39 Total Protein 6.9 Albumin 4.0 Globulin 2.9 Albumin/Globulin Ratio 1.4 Serum HCG, Qual Negative Urine Color Yellow Urine Appearance Clear Urine pH 7.0 Ur Specific [place] 1.010 Urine Protein Negative Urine Glucose (UA) Negative Urine Ketones Negative Urine Blood Negative Urine Nitrate Negative Urine Bilirubin Negative Urine Urobilinogen 0.2 Ur Leukocyte Esterase Negative Ur Squamous Epith Cells Occasional Amorphous Sediment 1+ DS: Diagnosis Discharge Diagnosis (1) Sudden onset of severe abdominal pain: Status: Acute Code(s): R10.9 - Unspecified abdominal pain (2) Hemorrhagic cyst of right ovary: Status: Acute Code(s): N83.201 - Unspecified ovarian cyst, right side (3) Thickened small bowel: Status: Acute Code(s): K63.9 - Disease of intestine, unspecified Discharge Plan Disposition Patient Disposition: Home, Self-Care Condition: Good Follow up Plan Follow up with: Nicky Delacruz DO [Staff Physician, HEMATOLOGY SUPERVISOR] - 1 week Referral Note: Or she can follow-up with her journalists and other writers at [facility] next week. Whichever she prefers Prescriptions/Medication Reconciliation: New ibuprofen 800 mg tablet 800 mg PO Q8H PRN (Reason: pain) Qty: 20 0RF hydrocodone-acetaminophen 5-325 mg tablet 1 tab PO Q6H PRN (Reason: pain) Qty: 12 0RF Problem Reconciliation Problems Reviewed?: Yes Patient Discharge Instructions ACTIVITY: Continue current activity DIET: continue same diet and regular diet Print Language: Danish Providers Primary Care Provider: Dotty Lo Admit Provider: Lalo Irving Attending Provider: Lalo Irving
[2025-05-27] MEDS: HYDROCODONE/APAP 5/325 MG TABLET 1 TAB PO (09:31)
== END 2025-05-27 11:20 | disposition home or self-care (01) ==
LOC: ER 05-27 01:00 → OB 05-27 01:03
PROVIDERS: Student in an Organized Health Care Education/Training Program; Admitting Provider Nurse Practitioner Obstetrics & Gynecology; Emergency Provider Emergency Medicine; PCP Family Medicine; Visit Provider Nurse Practitioner Obstetrics & Gynecology
DX: R10.9 Unspecified abdominal pain (principal); N83.201 Unspecified ovarian cyst, right side; K63.9 Disease of intestine, unspecified; F17.200 Nicotine dependence, unspecified, uncomplicated; K76.9 Liver disease, unspecified; R19.02 Left upper quadrant abdominal swelling, mass and lump; K55.1 Chronic vascular disorders of intestine
CPT/HCPCS: 36415; 74177; 76830; 80053; 81001; 84703; 85025; 96361; 96374; 96375; 96376; 99285; G0378; J1885; J2270; J2405; J7120; Q9967

== ENCOUNTER 2025-06-02 13:09 | Inpatient (IN) | payer MEDICAID, SELFPAY ==
[2025-06-02 13:54] VITALS: BP 129/61; PULSE 74; RESP 20; TEMP 36.8; O2SAT 99; BMI 29.2
[2025-06-02 14:03] LABS: Microscopic, Urine URINE MICROSCOPIC (MICROSCOPIC)
--- NOTE | 2025-06-02 14:09 | CT_ITS ---
FINAL REPORT TECHNIQUE: Pre-and postcontrast images of the abdomen and pelvis were performed by computed tomography. Extensive 3-D reconstruction images were performed. A CTA was performed. This study was performed with techniques to keep radiation doses as low as reasonably achievable (ALARA). Individualized dose reduction techniques using automated exposure control or adjustment of mA and/or kV according to the patient''s size were employed. CLINICAL HISTORY: abdominal bloating/pain hemorrhagic cyst COMPARISON: 05/26/2025 FINDINGS: ABDOMEN/PELVIS: On the precontrast images, there is a punctate nonobstructing stone in the lower pole of the right kidney on image 67, series 3. On the postinfusion images, the liver parenchyma is homogeneous. The gallbladder is contracted. The spleen, pancreas, adrenals, and kidneys are unremarkable. The appendix is normal. There is a cystic structure in the right adnexal region measuring 5.3 x 4.0 cm on image 127, series 10. The uterus is anteverted. There is no pelvic free fluid. CTA: The SMA, celiac axis, and ALICIA are patent. There is no significant stenosis or calcification. There are dual right and left renal arteries. The renal arteries are patent. There is no evidence of aneurysm or dissection. IMPRESSION: Right adnexal cyst, favor physiologic in this reproductive age patient about follow-up ultrasound in 6 weeks or 10 weeks is recommended. Reviewed, Interpreted and Dictated by Odin Gibson MD Transcribed by Diane Li Authenticated and [facility]
[2025-06-02 14:13] LABS: Bilirubin,Urine Negative (Negative); Color,Urine YELLOW (Yellow); Glucose,Urine (UA) Negative (Negative); Ketones,Urine Negative (Negative); Leukocyte Esterase,Urine TRACE (Negative); PH,Urine 6.0 (5.0-8.5); Protein,Urine Negative (Negative); Specific Gravity, Urine >= 1.030 (1.005-1.030); Urobilinogen,Urine 0.2 EU/dl (0.2)
[2025-06-02 14:14] LABS: Urine Pregnancy, HCG Qual. Negative (Negative)
[2025-06-02] MEDS: KETOROLAC 30MG/ML VIAL 30 MG IV ×2 (14:24→23:24)
[2025-06-02] MEDS: 0.9 % SODIUM CHLORIDE 1000ML 1,000 ML 999 ML IV (14:24)
--- NOTE | 2025-06-02 14:28 | ED_ITS ---
Discharge Plan Disposition Patient Disposition: Admitted Prescriptions Prescriptions: No Action ibuprofen 800 mg tablet 800 mg PO Q8H PRN (Reason: pain) Qty: 20 0RF hydrocodone-acetaminophen 5-325 mg tablet 1 tab PO Q6H PRN (Reason: pain) Qty: 12 0RF Referrals Follow up/Referrals: Dotty Lo [Primary Care Provider, Medical] - See instructions Clinical Impressions Clinical Impression: Abdominal pain, RLQ, Ovarian cyst Instructions Patient Instructions: DI for Acute Abdominal Pain Print Language Print Language: Vietnamese Discharge ED Provider: Saroj Griffith General Adult HPI <Norah William (ED), STUDENT LIAISON OFFICER - Last Filed: 06/02/25 15:17> General Chief complaint: Abdominal Pain Stated complaint: cyst bottom of stomach, pain radiating to back Time Seen by Provider: 06/02/25 13:56 Mode of Arrival: Ambulatory Source of Information: Patient Description of Symptoms (Recalled from ER Triage Doc. by RN): patient here for abdominal pain that started last week. she was seen in this ED for it and diagnosed with a ruptured ovarian cyst and ultimately discharged with instructions to follow up with CLERK STENOGRAPHER. her appt is today at 3pm but she couldn't tolerate the pain any longer. she did call her performance improvement consultant and they told her to come down to the ED. she is having lower abdominal pain and her abdomen is significantly more swollen over the last week. she has n/v/d as well. no noted fevers at home. History of Present Illness HPI narrative: 30-year-old female presents to the ED for Complaint of abdominal pain that started last week. She is seen in the ED for it and diagnosed with a ruptured ovarian cyst and ultimately discharged with instructions to follow-up with CLERK STENOGRAPHER. Her appointment is today at 3 PM but she could not tolerate the pain any longer. She did call her CLERK STENOGRAPHER and they told her to come down to the ER. She is having diffuse abdominal pain and bloating. She says every time she eats it looks more. She says it is tender throughout. Patient tells me that it pain radiates through to her back. She says has to force herself to eat. She has no fevers. Patient does have some lightheaded feelings at home Related Data Previous Rx's ?Medication ?Instructions ?Recorded hydrocodone 5 mg-acetaminophen 325 1 tab PO Q6H PRN pa in #12 tabs 05/27/25 mg tablet ibuprofen 800 mg tablet 800 mg PO Q8H PRN pain #20 t abs 05/27/25 Allergies Allergy/AdvReac Type Severity Reaction Status Date / Time No Known Allergies Allergy Verified 05/26/25 23:17 PFSH <Norah William (ED), STUDENT LIAISON OFFICER - Last Filed: 06/02/25 15:17> PFS Disclaimer: The information contained in this section may have been updated after the patient was seen, as this information can be updated by other users. Surgical History (Updated 05/27/25 @ 01:57 by Mercy Macdonald) No significant past surgical history Social History (Updated 05/27/25 @ 01:56 by Mercy Macdonald) Smoking Status: Current every day smoker alcohol intake: never current occupational status: employed and other Travel in the last 8 weeks?: None Have you lived/traveled outside US in past 30 days?: No Contact w/someone who lives/traveled outside US past 30 days?: No Exposure to someone with infectious disease in past 14 days?: No Do you have a fever (greater than 100.4 F or 38 C)?: No Have you tested positive for COVID-19?: No Exposed to someone with COVID-19 in past 14 days?: No Do you have a sore throat?: No Do you have a cough?: No Do you have any weakness?: No Do you have any diarrhea?: No Are you experiencing any unusual bleeding?: No Do you have any muscle aches/pain?: No Do you have any abdominal pain?: No Are you experiencing loss of taste or smell?: No Other Medical History Have you received the Flu Vaccine for this season: No Have you received the Pneumonia Vaccine: No <Norah William (ED), STUDENT LIAISON OFFICER - Last Filed: 06/02/25 15:17> ROS Obtained: Yes Systems reviewed as appropriate & no additional complaints except as documented Constitutional Constitutional: Reports as per HPI Physical Exam <Norah William (ED), STUDENT LIAISON OFFICER - Last Filed: 06/02/25 15:17> General General appearance: alert and in no apparent distress Head Head exam: normocephalic Eye Eye exam: Present PERRL and EOMI ENT ENT exam: Present normal oropharynx and mucous membranes moist Neck Neck exam: Present full ROM and trachea midline Respiratory Respiratory exam: Present normal lung sounds bilaterally Cardiovascular Cardiovascular exam: Present regular rate, normal rhythm, normal heart sounds, +S1 and +S2 Abdominal Exam Abdominal exam: Present soft, distention, tenderness and normal bowel sounds Abdominal tenderness: Present diffuse Extremities Exam Extremities exam: Present full ROM and normal capillary refill Back Exam Back exam: Present normal inspection Neurological Exam Neurological exam: Present alert and oriented X3 Skin Skin exam: Present warm and dry Medical Decision Making <Norah William (ED), STUDENT LIAISON OFFICER - Last Filed: 06/02/25 15:17> Medical Records Screening: Per USPSTF and CDC recommendations, given the prevalence of disease in our region, it is our hospital?s policy to screen for HIV and viral Hepatitis for all patients aged 18 and over and those with ongoing risk factors. Josue Inquiry Pt receiving controlled substance: No Josue was queried for this patient: No Vital Signs: 06/02/25 13:54 06/02/25 16:00 Temperature 98.2 F Temperature Source Oral Pulse Rate 69 Pulse Rate [Right Radial] 74 Respiratory Rate 20 Blood Pressure 112/73 Blood Pressure [Right Arm] 129/61 Blood Pressure Mean [Right Arm] 83 Blood Pressure Source [Right Arm] Automatic Cuff Blood Pressure Position [Right Arm] Sitting 02 Sat by Pulse Oximetry 99 97 Oxygen Delivery Method Room Air Room Air Lab Data Lab Results 06/02/25 13:49: Urine Color Yellow, Urine Appearance Clear, Urine pH 6.0, Ur Specific [place] >= 1.030, Urine Protein Negative, Urine Glucose (UA) Negative, Urine Ketones Negative, Urine Blood Negative, Urine Nitrate Negative, Urine Bilirubin Negative, Urine Urobilinogen 0.2, Ur Leukocyte Esterase Trace, Urine RBC None, Urine WBC Occasional, Ur Squamous Epith Cells Occasional, Urine Bacteria Trace, Urine HCG, Qual Negative 06/02/25 14:03: WBC 5.8, RBC 4.41, Hgb 13.0, Hct 40.0, MCV 90.7, MCH 29.5, MCHC 32.5, RDW 12.8, Plt Count 321, MPV 9.7, Neut % (Auto) 60.9, Lymph % (Auto) 28.4, [place] % (Auto) 6.9, Eos % (Auto) 2.8, Baso % (Auto) 0.7, Neut # (Auto) 3.5, Lymph # (Auto) 1.7, [place] # (Auto) 0.4, Eos # (Auto) 0.2, Baso # (Auto) 0.0, Sodium 140, Potassium 3.6, Chloride 105, Carbon Dioxide 25, Anion Gap 13.6, BUN 10, Creatinine 0.80, Estimated Creat Clear 120, Estimated GFR 85, Est GFR ( Amer) 103, Glucose 75, Calcium 9.3, Magnesium 1.9, Total Bilirubin 0.4, AST 41 H , ALT 54, Alkaline Phosphatase 64, Total Protein 7.4, Albumin 4.4, Globulin 3.0, Albumin/Globulin Ratio 1.5, Lipase 157 06/02/25 14:03 06/02/25 14:03 Orders (Tests/Meds): ED MEDICATIONS Generic Name Dose Route Start Last Admin Trade Name Freq PRN Reason Stop Dose Admin Morphine Sulfate 4 mg 06/02/25 16:18 Morphine 4mg/Ml Syringe IV 06/02/25 16:19 ONCE ONE Sodium Chloride 10 ml 06/02/25 15:12 06/02/25 15:14 Sodium Chloride 0.9% 10ml Syr (Rad Only) IV 07/02/25 15:11 10 ml NEEDED PRN Administration Maintain IV Site Discontinued Medications Generic Name Dose Route Start Last Admin Trade Name Freq PRN Reason Stop Dose Admin Sodium Chloride 1,000 mls @ 999 mls/hr 06/02/25 14:09 06/02/25 16:04 Sod Chlor 0.9% 1000ml Bag IV 06/02/25 15:09 Infused .Q1H1M ONE Infusion Iopamidol 80 ml 06/02/25 15:12 06/02/25 15:14 Iopamidol-370 (76%);100ml Bottle IV 06/02/25 15:13 80 ml ONCE ONE Administration Ketorolac Tromethamine 30 mg 06/02/25 14:09 06/02/25 14:24 Ketorolac 30mg/Ml Vial IV 06/02/25 14:10 30 mg ONCE ONE Administration Sodium Chloride 50 ml 06/02/25 15:12 06/02/25 15:13 0.9 % Sodium Chloride 50 Ml Vial IV 06/02/25 15:13 50 ml ONCE ONE Administration ORDERS Category Date Time Status CT angio abd/pel - GI Bleed Stat Cat Scan 06/02/25 14:09 Completed CBC [Complete Blood Count Auto Diff] Stat Lab 06/02/25 14:03 Completed Comprehensive Metabolic Panel Stat Lab 06/02/25 14:03 Completed Lipase Stat Lab 06/02/25 14:03 Completed Magnesium Stat Lab 06/02/25 14:03 Completed Urinalysis and Microscopic Stat Lab 06/02/25 13:49 Completed Urine , HCG Qual. Stat Lab 06/02/25 13:49 Completed Medical Decision Narrative: patient is a 30-year-old female presenting to the emergency department for evaluation of abdominal pain with diffuse pain and bloating. Patient is hemodynamically stable and nontoxic-appearing upon arrival, afebrile. Differential diagnosis includes abdominal pain, gastritis, enteritis, ovarian cyst rupture, ovarian torsion, small bowel, SBO, pancreatitis, among others. Workup will be conducted with hematologic labs, specific imaging. We are waiting for imaging results and labs. I signed out to Dr Griffith. <Saroj Griffith MD - Last Filed: 06/02/25 16:29> Vital Signs: 06/02/25 13:54 06/02/25 16:00 Temperature 98.2 F Temperature Source Oral Pulse Rate 69 Pulse Rate [Right Radial] 74 Respiratory Rate 20 Blood Pressure 112/73 Blood Pressure [Right Arm] 129/61 Blood Pressure Mean [Right Arm] 83 Blood Pressure Source [Right Arm] Automatic Cuff Blood Pressure Position [Right Arm] Sitting 02 Sat by Pulse Oximetry 99 97 Oxygen Delivery Method Room Air Room Air Lab Data Lab Results 06/02/25 13:49: Urine Color Yellow, Urine Appearance Clear, Urine pH 6.0, Ur Specific [place] >= 1.030, Urine Protein Negative, Urine Glucose (UA) Negative, Urine Ketones Negative, Urine Blood Negative, Urine Nitrate Negative, Urine Bilirubin Negative, Urine Urobilinogen 0.2, Ur Leukocyte Esterase Trace, Urine RBC None, Urine WBC Occasional, Ur Squamous Epith Cells Occasional, Urine Bacteria Trace, Urine HCG, Qual Negative 06/02/25 14:03: WBC 5.8, RBC 4.41, Hgb 13.0, Hct 40.0, MCV 90.7, MCH 29.5, MCHC 32.5, RDW 12.8, Plt Count 321, MPV 9.7, Neut % (Auto) 60.9, Lymph % (Auto) 28.4, [place] % (Auto) 6.9, Eos % (Auto) 2.8, Baso % (Auto) 0.7, Neut # (Auto) 3.5, Lymph # (Auto) 1.7, [place] # (Auto) 0.4, Eos # (Auto) 0.2, Baso # (Auto) 0.0, Sodium 140, Potassium 3.6, Chloride 105, Carbon Dioxide 25, Anion Gap 13.6, BUN 10, Creatinine 0.80, Estimated Creat Clear 120, Estimated GFR 85, Est GFR ( Amer) 103, Glucose 75, Calcium 9.3, Magnesium 1.9, Total Bilirubin 0.4, AST 41 H , ALT 54, Alkaline Phosphatase 64, Total Protein 7.4, Albumin 4.4, Globulin 3.0, Albumin/Globulin Ratio 1.5, Lipase 157 Orders (Tests/Meds): ED MEDICATIONS Generic Name Dose Route Start Last Admin Trade Name Freq PRN Reason Stop Dose Admin Morphine Sulfate 4 mg 06/02/25 16:18 Morphine 4mg/Ml Syringe IV 06/02/25 16:19 ONCE ONE Sodium Chloride 10 ml 06/02/25 15:12 06/02/25 15:14 Sodium Chloride 0.9% 10ml Syr (Rad Only) IV 07/02/25 15:11 10 ml NEEDED PRN Administration Maintain IV Site Discontinued Medications Generic Name Dose Route Start Last Admin Trade Name Freq PRN Reason Stop Dose Admin Sodium Chloride 1,000 mls @ 999 mls/hr 06/02/25 14:09 06/02/25 16:04 Sod Chlor 0.9% 1000ml Bag IV 06/02/25 15:09 Infused .Q1H1M ONE Infusion Iopamidol 80 ml 06/02/25 15:12 06/02/25 15:14 Iopamidol-370 (76%);100ml Bottle IV 06/02/25 15:13 80 ml ONCE ONE Administration Ketorolac Tromethamine 30 mg 06/02/25 14:09 06/02/25 14:24 Ketorolac 30mg/Ml Vial IV 06/02/25 14:10 30 mg ONCE ONE Administration Sodium Chloride 50 ml 06/02/25 15:12 06/02/25 15:13 0.9 % Sodium Chloride 50 Ml Vial IV 06/02/25 15:13 50 ml ONCE ONE Administration ORDERS Category Date Time Status CT angio abd/pel - GI Bleed Stat Cat Scan 06/02/25 14:09 Completed CBC [Complete Blood Count Auto Diff] Stat Lab 06/02/25 14:03 Completed Comprehensive Metabolic Panel Stat Lab 06/02/25 14:03 Completed Lipase Stat Lab 06/02/25 14:03 Completed Magnesium Stat Lab 06/02/25 14:03 Completed Urinalysis and Microscopic Stat Lab 06/02/25 13:49 Completed Urine , HCG Qual. Stat Lab 06/02/25 13:49 Completed Medical Decision Narrative: patient is a 30-year-old female presenting to the emergency department for evaluation of abdominal pain with diffuse pain and bloating. Patient is hemodynamically stable and nontoxic-appearing upon arrival, afebrile. Differential diagnosis includes abdominal pain, gastritis, enteritis, ovarian cyst rupture, ovarian torsion, small bowel, SBO, pancreatitis, among others. Workup will be conducted with hematologic labs, specific imaging. We are waiting for imaging results and labs. I signed out to Dr Grififth. Saroj Griffith: Upon assumption of care patient was hemodynamically stable workup thus far reviewed by me hematologic labs are nonactionable no significant leukocytosis no transfusable anemia no MONET or critical electrolyte abnormality. hCG negative urinalysis interpreted by me and not consistent with infection. CT of the abdomen pelvis right adnexal cyst 5.3 x 4.0 cm. I discussed case with Dr. Rojas we will repeat transvaginal ultrasound and admit the patient to his service for continued evaluation at this time patient may require ex lap. Imaging was ordered and pending at time of admission. Critical Care <Norah William (ED), STUDENT LIAISON OFFICER - Last Filed: 06/02/25 15:17> Critical Care Time Critical Care Time: No
[2025-06-02 14:41] LABS: Hematocrit 40.0 % (37.0-47.0); Hemoglobin 13.0 g/dL (12.2-16.2); Immature Granulocytes % 0.3 %; Mean Corpuscular HGB Conc 32.5 g/dL (31.8-35.4); Mean Corpuscular Hemoglobin 29.5 pg (27.0-31.2); Mean Corpuscular Volume 90.7 fl (81-99); Nucleated Red Blood Cells % 0 %; Platelet Count 321 K/mm3 (142-424); Red Blood Count 4.41 M/mm3 (4.20-5.40); Red Cell Distribution Width-SD 42.5 fL; White Blood Count 5.8 K/mm3 (4.8-10.8)
[2025-06-02 14:46] LABS: Alanine Aminotransferase 54 U/L (12-78); Albumin Level 4.4 g/dl (3.5-5.0); Albumin/Globulin Ratio 1.5 (1.1-1.8); Alkaline Phosphatase 64 U/L (38-126); Anion Gap 13.6 mEq/L (5-15); Aspartate Amino Transferase 41 U/L (14-36); Bilirubin,Total 0.4 mg/dl (0.2-1.3); Blood Urea Nitrogen 10 mg/dl (7-17); Calcium 9.3 mg/dl (8.4-10.2); Carbon Dioxide 25 mmol/L (22.0-30.0); Chloride 105 mmol/L (98-107); Creatinine Clearance Estimated 120 mL/min (50-200); Creatinine,Serum 0.80 mg/dl (0.52-1.04); Estimated Glomerular Filt Rate 85 ml/min (>60); GFR (African American) 103 ML/MIN (>60); Globulin 3.0 g/dL (1.3-3.2); Glucose 75 mg/dl (74-100); Lipase 157 U/L (23-300); Magnesium 1.9 mg/dl (1.6-2.3); Potassium 3.6 mmoL/L (3.5-5.1); Sodium 140 mmol/L (136-145); Total Protein,Serum 7.4 g/dl (6.3-8.2)
[2025-06-02 14:47] LABS: Bacteria,Urine Trace /lpf; Squamous Epithelial Cell,Urine Occasional #/hpf (0-5); WBC,Urine Occasional #/hpf (0-3)
[2025-06-02] MEDS: 0.9 % SODIUM CHLORIDE 50 ML VIAL IV (15:13)
[2025-06-02] MEDS: SODIUM CHLORIDE 0.9% 10ML SYR (RAD ONLY) 10 ML IV (15:14)
[2025-06-02] MEDS: IOPAMIDOL-370 (76%);100ML BOTTLE 80 ML IV (15:14)
[2025-06-02 16:00] VITALS: BP 112/73; PULSE 69; O2SAT 97
--- NOTE | 2025-06-02 16:19 | PC.NURSE ---
Dr.Clark regina Vargas
--- NOTE | 2025-06-02 16:28 | PC.NURSE ---
I called radiology who is calling in US
--- NOTE | 2025-06-02 16:28 | PC.NURSE ---
HS notified of the need for a bed to admit to in OB
--- NOTE | 2025-06-02 16:29 | US_ITS ---
PROCEDURE INFORMATION: Exam: US Duplex Artery or Vein of the Abdominal and/or Reproductive Organs, Limited Ovaries Exam date and time: 06/02/2025 4:31 PM Age: 30 years old Clinical indication: Pelvic pain; Additional info: Torsion ruleout TECHNIQUE: Imaging protocol: Real-time duplex ultrasound scan of the arterial or venous flow with montero scale, color Doppler flow and spectral waveform analysis with image documentation. Limited duplex exam focused on the ovaries. Duplex exam was performed to evaluate for torsion and other vascular conditions. COMPARISON: US TRANSVAGINAL 05/26/2025 11:53 PM FINDINGS: Right ovary/adnexa: Normal arterial or venous Doppler waveforms in the ovary. No ovarian torsion. Left ovary/adnexa: Unremarkable left ovarian arterial and venous waveforms. Vasculature: Unremarkable right ovarian venous waveforms. IMPRESSION: No ovarian torsion. PROCEDURE INFORMATION: Exam: US Pelvis, Transvaginal, Non-Obstetric Exam date and time: 06/02/2025 4:31 PM Age: 30 years old Clinical indication: Pelvic pain; Additional info: Torsion ruleout TECHNIQUE: Imaging protocol: Real-time transvaginal pelvic (non-obstetric) ultrasound with image documentation. Transvaginal imaging was used for better evaluation of the endometrium, adnexa, and/or cervix. COMPARISON: US TRANSVAGINAL 05/26/2025 11:53 PM FINDINGS: Uterus: The endometrium is 8 mm in thickness. Uterus measures 7.6 x 3.8 x 5.3 cm. Right ovary/adnexa: The right ovary is enlarged measuring 5.9 x 6.2 x 4.5 cm. This is accounted for by the presence of multiple cystic lesions measuring up to 4.8 cm. The dominant right ovarian cystic lesion has internal debris that suggests hemorrhagic cyst. Left ovary/adnexa: Left ovary measures 3.2 x 2.7 x 1.4 cm. Unremarkable left ovarian arterial and venous waveforms. Urinary bladder: Urinary bladder is limited. Vasculature: Unremarkable right ovarian venous waveforms. Intraperitoneal space: Small amount of free fluid in the pelvis. IMPRESSION: The dominant right ovarian cystic lesion has internal debris that suggests hemorrhagic cyst. No ovarian torsion.
[2025-06-02 16:30] VITALS: BP 116/65; PULSE 61; O2SAT 98
[2025-06-02] MEDS: MORPHINE 4MG/ML SYRINGE 4 MG IV (16:33)
[2025-06-02] MEDS: ACETAMINOPHEN 500MG TAB 1000 MG PO ×2 (16:34→23:24)
--- NOTE | 2025-06-02 16:39 | PC.NURSE ---
Pt taken to radiology
--- NOTE | 2025-06-02 16:55 | PC.NURSE ---
Walker Hood called OB to check on status of room
--- NOTE | 2025-06-02 17:06 | PC.NURSE ---
report called to OB, spoke with Gabriela FUENTES
[2025-06-02 17:20] VITALS: BP 112/73; PULSE 54; RESP 16; TEMP 36.6; O2SAT 98
[2025-06-02 18:00] VITALS: BP 109/61; PULSE 54; RESP 18; TEMP 36.6; O2SAT 99
--- NOTE | 2025-06-02 18:00 | PC.NURSE ---
Assessment completed. Lungs cta and bowel sounds hypoactive, abd tender to touch. Good urine output, pt reports bowel movement yesterday. A/ox4. Patient is independent. Iv to left ac saline locked. NO edema noted. Patient reports nauesa and rates pain 5/10. poc explained and she v/u.
[2025-06-02] MEDS: HYDROMORPHONE 2MG/ML SYRINGE 1 MG IV (18:23)
[2025-06-02] MEDS: ONDANSETRON 4MG/2ML VIAL 4 MG IV (18:30)
--- NOTE | 2025-06-02 19:10 | PC.NURSE ---
report to kellee osuna RN
--- NOTE | 2025-06-02 19:22 | PC.NURSE ---
dr Irving at beside
--- NOTE | 2025-06-02 19:33 | EXP.HP ---
History of Present Illness *Admission Date: 06/02/25 *Reason for visit:: Pelvic pain, hemorrhagic ovarian cyst *History of present illness: 30-year-old female presents to the ED for Complaint of abdominal pain that started last week. She is seen in the ED for it and diagnosed with a ruptured ovarian cyst and ultimately discharged with instructions to follow-up with CERTIFIED ADAPTED PHYSICAL EDUCATOR. Her appointment is today at 3 PM but she could not tolerate the pain any longer. She did call her CERTIFIED ADAPTED PHYSICAL EDUCATOR and they told her to come down to the ER. She is having diffuse abdominal pain and bloating. She says every time she eats it looks more. She says it is tender throughout. Patient tells me that it pain radiates through to her back. She says has to force herself to eat. She has no fevers. Patient does have some lightheaded feelings at home. She had an ultrasound last week that showed a 4 cm hemorrhagic ovarian cyst and today transvaginal ultrasound shows that the cyst has grown to 6 cm. As result of her increasing pain we have admitted her and we will plan to perform a laparoscopy tomorrow. She is not an emergent surgical case. [facility] Disclaimer: The information contained in this section may have been updated after the patient was seen, as this information can be updated by other users. Surgical History No significant past surgical history Social History Smoking Status: Current every day smoker alcohol intake: never current occupational status: employed and other Travel in the last 8 weeks?: None Have you lived/traveled outside US in past 30 days?: No Contact w/someone who lives/traveled outside US past 30 days?: No Exposure to someone with infectious disease in past 14 days?: No Do you have a fever (greater than 100.4 F or 38 C)?: No Have you tested positive for COVID-19?: No Exposed to someone with COVID-19 in past 14 days?: No Do you have a sore throat?: No Do you have a cough?: No Do you have any weakness?: No Do you have any diarrhea?: No Are you experiencing any unusual bleeding?: No Do you have any muscle aches/pain?: No Do you have any abdominal pain?: No Are you experiencing loss of taste or smell?: No Other Medical History Have you received the Flu Vaccine for this season: No Have you received the Pneumonia Vaccine: No Review of Systems Review of Systems Review of systems:: pertinent systems reviewed and negative unless documented below Meds Home Medications and Allergies Home Medications ?Medication ?Instructions ?Recorded ?Confirmed ?Type hydrocodone 5 mg-acetaminophen 325 1 tab PO Q6H PRN pain #12 tabs 05/27/25 Rx mg tablet ibuprofen 800 mg tablet 800 mg PO Q8H PRN pain #20 tabs 05/27/25 Rx New Prescriptions to Start Prescriptions: Allergies Allergy/AdvReac Type Severity Reaction Status Date / Time No Known Allergies Allergy Verified 05/26/25 23:17 Exam Data for Last 24 hours Vital signs and Labs for Last 24 Hours: Temp Pulse Resp BP Pulse Ox O2 Del Method 97.8 F 54 L 18 109/61 L 99 Room Air 06/02/25 18:00 06/02/25 18:00 06/02/25 18:00 06/02/25 18:00 06/02/25 18:00 06/02/25 18:23 Laboratory Results - last 24 hr 06/02/25 13:49: Urine Color Yellow, Urine Appearance Clear, Urine pH 6.0, Ur Specific [place] >= 1.030, Urine Protein Negative, Urine Glucose (UA) Negative, Urine Ketones Negative, Urine Blood Negative, Urine Nitrate Negative, Urine Bilirubin Negative, Urine Urobilinogen 0.2, Ur Leukocyte Esterase Trace, Urine RBC None, Urine WBC Occasional, Ur Squamous Epith Cells Occasional, Urine Bacteria Trace, Urine HCG, Qual Negative 06/02/25 14:03: WBC 5.8, RBC 4.41, Hgb 13.0, Hct 40.0, MCV 90.7, MCH 29.5, MCHC 32.5, RDW 12.8, Plt Count 321, MPV 9.7, Neut % (Auto) 60.9, Lymph % (Auto) 28.4, [place] % (Auto) 6.9, Eos % (Auto) 2.8, Baso % (Auto) 0.7, Neut # (Auto) 3.5, Lymph # (Auto) 1.7, [place] # (Auto) 0.4, Eos # (Auto) 0.2, Baso # (Auto) 0.0, Sodium 140, Potassium 3.6, Chloride 105, Carbon Dioxide 25, Anion Gap 13.6, BUN 10, Creatinine 0.80, Estimated Creat Clear 120, Estimated GFR 85, Est GFR ( Amer) 103, Glucose 75, Calcium 9.3, Magnesium 1.9, Total Bilirubin 0.4, AST 41 H, ALT 54, Alkaline Phosphatase 64, Total Protein 7.4, Albumin 4.4, Globulin 3.0, Albumin/Globulin Ratio 1.5, Lipase 157 I & O for Last 24 hours: Intake & Output 05/31/25 06/01/25 06/02/25 06/03/25 11:59 11:59 11:59 11:59 Intake Total 1000 / 1000 Balance 1000 / 1000 Weight 160 lb Constitutional Constitutional: no acute distress *Routine HEENT Exam Head: Present normocephalic Eye: Present EOMI and PERRL ENT: Present mucous membranes moist *Routine Neck Exam Neck: Present supple; Absent lymphadenopathy *Routine Respiratory Exam Respiratory: Present CTA bilaterally *Routine Cardiovascular Exam Cardiovascular: Present RRR *Routine Abdominal Exam Abdominal: Present soft and normoactive bowel sounds; Absent tenderness *Routine Rectal Exam Rectal:: deferred *Routine Genitalia Exam Genitalia:: deferred *Routine Extremities Exam Extremities: Absent cyanosis, clubbing or edema *Routine Skin Exam Skin: Present warm; Absent rash *Routine Neurological Exam Neurological: Present alert and oriented X3 Assessment and Plan *Assessment and plan (1) Ovarian cyst: Status: Acute Qualifiers: Laterality: right Qualified Code(s): N83.201 - Unspecified ovarian cyst, right side Category: Medical Code(s): N83.209 - Unspecified ovarian cyst, unspecified side (2) Abdominal pain, RLQ: Status: Acute Category: Medical Code(s): R10.31 - Right lower quadrant pain (3) Hemorrhagic cyst of right ovary: Status: Acute Category: Medical Code(s): N83.201 - Unspecified ovarian cyst, right side Plan 1. She has a persistent right sided hemorrhagic ovarian cyst that has grown in size. 2. She continues to have right lower quadrant pain and her pain increased this evening. 3. Given the fact that she has now been admitted twice for this pain we will plan to observe her overnight and control her pain. We will perform a diagnostic laparoscopy with right ovarian cystectomy tomorrow morning. 4. We discussed the risks of surgery that includes bleeding, infection, injuries to the bowel and bladder. We discussed the rare risk of laparotomy. All questions were answered and consents were signed.
[2025-06-02 20:23] VITALS: BP 107/66; PULSE 62; RESP 18; TEMP 36.7; O2SAT 99
[2025-06-02] MEDS: LACTATED RINGERS 1000ML 1,000 ML 125 ML IV (20:25)
[2025-06-03] VITALS (21 sets, daily range): BP systolic 98–138; BP diastolic 47–83; PULSE 50–632; RESP 16–18; TEMP 36.4–37.2; O2SAT 93–100
[2025-06-03] MEDS: HYDROMORPHONE 2MG/ML SYRINGE 1 MG IV ×4 (00:51→21:11)
[2025-06-03] MEDS: LACTATED RINGERS 1000ML 1,000 ML 125 ML IV (04:53)
[2025-06-03] MEDS: ACETAMINOPHEN 500MG TAB 1000 MG PO ×2 (06:04→18:09)
[2025-06-03 06:44] LABS: Hematocrit 35.4 % (37.0-47.0); Immature Granulocytes % 0.3 %; Mean Corpuscular HGB Conc 31.9 g/dL (31.8-35.4); Mean Corpuscular Hemoglobin 29.2 pg (27.0-31.2); Mean Corpuscular Volume 91.5 fl (81-99); Nucleated Red Blood Cells % 0 %; Platelet Count 273 K/mm3 (142-424); Red Blood Count 3.87 M/mm3 (4.20-5.40); Red Cell Distribution Width-SD 42.2 fL; White Blood Count 7.3 K/mm3 (4.8-10.8)
[2025-06-03 07:03] LABS: Chloride 106 mmol/L (98-107); Potassium 4.0 mmoL/L (3.5-5.1); Sodium 139 mmol/L (136-145)
[2025-06-03 07:06] LABS: Anion Gap 11.0 mEq/L (5-15); Blood Urea Nitrogen 11 mg/dl (7-17); Calcium 7.9 mg/dl (8.4-10.2); Carbon Dioxide 26 mmol/L (22.0-30.0); Creatinine Clearance Estimated 137 mL/min (50-200); Creatinine,Serum 0.70 mg/dl (0.52-1.04); Estimated Glomerular Filt Rate 100 ml/min (>60); GFR (African American) 121 ML/MIN (>60); Glucose 94 mg/dl (74-100)
[2025-06-03 07:24] LABS: Hemoglobin 11.4 g/dL (12.2-16.2)
[2025-06-03] MEDS: KETOROLAC 30MG/ML VIAL 30 MG IV ×2 (08:11→18:10)
--- NOTE | 2025-06-03 10:30 | EXP.ANES.CKL ---
[facility] Disclaimer: The information contained in this section may have been updated after the patient was seen, as this information can be updated by other users. Surgical History No significant past surgical history Social History Smoking Status: Current every day smoker alcohol intake: never substance use type: denies use current occupational status: employed and other Travel in the last 8 weeks?: None [facility] Anesthesia Checklist Patient Identification Patient Identification: Arm Band and Verbal (Name & ) Structural Data Admitted From: Home Planned Operative Procedure/s: Diagnostic Laparoscopy Consent for Planned Operative Procedure(s) Verified: Yes Verified Documents: Surgical Consent NPO Status Verified Time NPO: 00:00 Chart Verification Results Verified: CBC and BMP Additional verifications Patient : No Anesthesia Reactions: No Airway Assessment Mallampati Score:: Class II C-Spine Mobility Assessed: Yes TMJ Mobility Assessed: Yes Dentition: Good Dentition Neurological Assessment Level of Consciousness: Awake, Alert and Appropriate Hx Seizures: No Numbness or tingling in extremities: No Anesthesia Plan Anesthesia Risk discussed: Yes Anesthesia Plan: Verified Anesthesia Type: General
--- NOTE | 2025-06-03 11:58 | EXP.OP.NOTE ---
Date of procedure: 06/03/25 Pre-op Diagnosis:: Pelvic pain, right ovarian hemorrhagic cyst Post-op Diagnosis:: Pelvic pain, right hemorrhagic ovarian cyst Procedure performed:: Diagnostic laparoscopy, right ovarian cystectomy Surgeon:: Lalo Irving MD RESIDENT PROGRAM SPECIALIST:: Ari Mcintyre Anesthesia: GETA Estimated blood loss (mL): 25 Clinical Note:: She is a 30-year-old lady who complains of severe right lower quadrant pain. She has been seen in the ER twice and admitted in the last couple of weeks. Recent ultrasound showed that the ovarian cyst on the right side had gotten slightly larger and since she continued to have right sided pain we elected to perform a diagnostic laparoscopy and right ovarian cystectomy for her hemorrhagic right ovarian cyst. Operative findings:: She had an enlarged right ovary that was filled with some blood clot as well as some serosanguineous fluid. The ovary was approximately 6 to 7 cm in size. Operative note:: She was taken the operating room where general anesthesia was found to be adequate. She was prepped and draped in normal sterile fashion the same lithotomy position. Weighted speculum space in vagina and the antilipid the cervix was grasped with a tenaculum. I dilated the cervix to approximately 4 mm with Carrizales dilators. I then inserted a Zaina uterine manipulator into the uterine cavity and insufflated the balloon. I injected 10 cc of 0.5% ropivacaine around the umbilicus, made a small incision here and inserted a Veress needle into the abdominal cavity. The abdominal cavity was insufflated with carbon oxide gas to a pressure of 20 mmHg. I then inserted a 5 mm trocar under direct vision. I injected through and through just above the pubic hairline, made a small incision and then inserted a 5 mm trocar under direct vision into the uterine cavity. In the left lower quadrant similarly I went lateral to the inferior epigastric arteries, injected through and through, made a small incision and inserted another 5 mm trocar here under direct vision. I then grasped the ovary and while grasping the ovary it tore and the fluid within the ovary was released. There was a small amount of clot that was taken up with the suction black oxide coating equipment tender. I then irrigated the pelvis well. I then made sure that the entire ovary was clean and since there was some ooze in the base of the ovarian pocket I elected to place Surgicel powder within the ovarian defect. After once again assuring hemostasis, the secondary trocars were removed under direct vision and the gas was let of the abdomen. The trocar sites were then closed with interrupted subcuticular 4-0 Monocryl suture. Sterile dressings were applied. She tolerated the procedure well and was taken to the recovery room in excellent condition. All sponge, instrument and needle counts were correct the estimated blood loss was less than 25 cc intraoperatively. Condition: stable Disposition: PACU Specimens:: None Complications:: None
--- NOTE | 2025-06-03 12:11 | P.PNANES_ITS ---
[facility] Anesthesia Record Part I Anesthesia Record I Intake, IV Amount: 800 Hydration: Adequate Estimated blood loss (mL): 25 Urine output (mL): 0 Blood Products used (#): none Blood Pressure: 131/83 SaO2: 93 Pulse Rate: 68 Airway Patency: Patent Respiratory Rate: 16 Temperature: 98.5 F Patient is:: Drowsy and Stable Stable to PACU at:: 12:10
--- NOTE | 2025-06-03 12:37 | PC.NURSE ---
Report received from George Myles RN in PACU.
[2025-06-03] MEDS: OXYCODONE 5MG IMMEDIATE RELEASE TABLET 10 MG PO ×2 (18:10→23:20)
[2025-06-03] MEDS: SENNOSIDES 8.6MG/DOCUSATE 50MG TABLET 1 TAB PO (21:11)
[2025-06-03] MEDS: SIMETHICONE 80MG CHEWABLE TABLET 160 MG PO (21:11)
[2025-06-04] VITALS (9 sets, daily range): BP systolic 96–138; BP diastolic 40–105; PULSE 57–71; RESP 14–19; TEMP 36.6–36.8; O2SAT 96–100
[2025-06-04] MEDS: ACETAMINOPHEN 500MG TAB 1000 MG PO (00:50)
[2025-06-04] MEDS: KETOROLAC 30MG/ML VIAL 30 MG IV ×4 (00:50→19:39)
[2025-06-04] MEDS: HYDROMORPHONE 2MG/ML SYRINGE 1 MG IV ×2 (01:36→05:12)
[2025-06-04] MEDS: SIMETHICONE 80MG CHEWABLE TABLET 160 MG PO ×3 (01:36→09:46)
--- NOTE | 2025-06-04 01:40 | PC.NURSE ---
RN attempting to ambulate with patient in hallway. Abdominal binder applied prior to ambulation. After ambulating half of a lap in the hallway, patient began to report severe pain and beginning to feel lightheaded. Patient was assisted to wheelchair and patient declined ambulation further and wanted to go back to bed
[2025-06-04] MEDS: OXYCODONE 5MG IMMEDIATE RELEASE TABLET 10 MG PO (04:13)
--- NOTE | 2025-06-04 04:26 | CT_ITS ---
PROCEDURE INFORMATION: Exam: CT Abdomen And Pelvis Without And With Contrast Exam date and time: 06/04/2025 4:54 AM Age: 30 years old Clinical indication: Abdominal pain; Additional info: Increased postoperative pain TECHNIQUE: Imaging protocol: Computed tomography of the abdomen and pelvis without and with contrast. Radiation optimization: All CT scans at this facility use at least one of these dose optimization techniques: automated exposure control; mA and/or kV adjustment per patient size (includes targeted exams where dose is matched to clinical indication); or iterative reconstruction. Contrast material: ISOVUE; Contrast volume: 75 ml; Contrast route: INTRAVENOUS (IV); COMPARISON: CT ANGIO ABD/PEL - GI BLEED 06/02/2025 3:04 PM FINDINGS: Liver: Normal. No mass. Gallbladder and biliary ducts: Normal. No calcified stones. No ductal dilation. Pancreas: Normal. No ductal dilation. Spleen: Normal. No splenomegaly. Adrenal glands: Normal. No mass. Kidneys and ureters: Normal. No hydronephrosis. Stomach and bowel: Large stool burden in the proximal colon. Gaseous distension in the distal colon. Appendix: No evidence of appendicitis. Intraperitoneal space: Trace free fluid in the pelvis. Vasculature: Unremarkable. No abdominal aortic aneurysm. Lymph nodes: Unremarkable. No enlarged lymph nodes. Urinary bladder: Unremarkable as visualized. Reproductive: Ovoid lucent structure in the right adnexa, possibly related to recent surgery. Bones/joints: Unremarkable. No acute fracture. Soft tissues: Unremarkable. IMPRESSION: 1. No acute findings. 2. Constipation and gaseous distension of the colon, suspicious for postoperative ileus.
--- NOTE | 2025-06-04 04:58 | PC.NURSE ---
Patient taken via wheelchair to radiology, accompanied by staff
[2025-06-04] MEDS: IOPAMIDOL-370 (76%);100ML BOTTLE 75 ML IV (05:01)
[2025-06-04] MEDS: SODIUM CHLORIDE 0.9% 10ML SYR (RAD ONLY) 10 ML IV (05:02)
--- NOTE | 2025-06-04 05:05 | PC.NURSE ---
Patient returned to floor after CT. Assisted back into bed
[2025-06-04 05:43] LABS: Albumin Level 3.5 g/dl (3.5-5.0); Chloride 105 mmol/L (98-107); Potassium 4.0 mmoL/L (3.5-5.1); Sodium 137 mmol/L (136-145)
[2025-06-04 05:46] LABS: Alanine Aminotransferase 46 U/L (12-78); Albumin/Globulin Ratio 1.3 (1.1-1.8); Alkaline Phosphatase 59 U/L (38-126); Anion Gap 10.0 mEq/L (5-15); Aspartate Amino Transferase 45 U/L (14-36); Bilirubin,Total 0.4 mg/dl (0.2-1.3); Blood Urea Nitrogen 7 mg/dl (7-17); Calcium 8.4 mg/dl (8.4-10.2); Carbon Dioxide 26 mmol/L (22.0-30.0); Creatinine Clearance Estimated 160 mL/min (50-200); Creatinine,Serum 0.60 mg/dl (0.52-1.04); Estimated Glomerular Filt Rate 119 ml/min (>60); GFR (African American) 144 ML/MIN (>60); Globulin 2.6 g/dL (1.3-3.2); Glucose 106 mg/dl (74-100); Total Protein,Serum 6.1 g/dl (6.3-8.2)
--- NOTE | 2025-06-04 05:48 | PC.NURSE ---
Discussed with patient MD orders and appropriate interventions. Patient initially began chewing gum but quickly stopped due to wishing to sleep.
[2025-06-04 05:58] LABS: Hematocrit 35.9 % (37.0-47.0); Hemoglobin 12.2 g/dL (12.2-16.2); Immature Granulocytes % 0.4 %; Mean Corpuscular HGB Conc 34.0 g/dL (31.8-35.4); Mean Corpuscular Hemoglobin 30.3 pg (27.0-31.2); Mean Corpuscular Volume 89.1 fl (81-99); Nucleated Red Blood Cells % 0 %; Platelet Count 344 K/mm3 (142-424); Red Blood Count 4.03 M/mm3 (4.20-5.40); Red Cell Distribution Width-SD 40.2 fL; White Blood Count 12.4 K/mm3 (4.8-10.8)
[2025-06-04] MEDS: ACETAMINOPHEN 1,000MG/100ML VIAL 1000 MG IV ×3 (06:58→18:27)
--- NOTE | 2025-06-04 07:39 | EXP.ANES.II ---
[facility] Anesthesia Record Part II Anesthesia Record Part II Discharge Time: 12:40 Destination: Obstetric Gynecology Dept PACU nurse assessment reviewed?: Yes Patient Condition:: Good Anesthesia Complications:: None Swallowing reflex intact?: Yes Airway Patency: Patent Cyanosis?: No Blood Pressure: 138/77 SaO2: 96 Respiratory Rate: 16 Pulse Rate: 57 Temperature: 98.2 F Mental Status: Alert & Oriented Pain level:: 0 Nausea and/or vomitting:: None Intake, IV Amount: 0 Hydration: Adequate
--- NOTE | 2025-06-04 08:34 | PC.NURSE ---
Dr. Monahan at bedside.
[2025-06-04] MEDS: LACTATED RINGERS 1000ML 1,000 ML 125 ML IV ×2 (09:45→19:38)
[2025-06-04] MEDS: SENNOSIDES 8.6MG/DOCUSATE 50MG TABLET 1 TAB PO (09:46)
--- NOTE | 2025-06-04 11:30 | PC.NURSE ---
Went in the pts room to assess bowel sounds. Pts bowel sounds hypoactive in all 4 quadrants. Pt tearful and reports being in pain 10. RN educated the pt on the need to get out of the bed and ambulate to help get the gas out and get her bowels moving. Pt reports it hurts when she moves, or gets up to go pee or do anything. pt reminded the pain is not going to go away if she does not get up and try to ambulate. Pt offered an abdominal binder and pt reports it hurts worse with that on. pt refused all nursing advice at this time
--- NOTE | 2025-06-04 11:45 | PC.NURSE ---
Patient rang out with complaints of severe abdominal pain. Patient reports severe pain 9/10 in all quadrants. Patient bowel sounds are hypoactive in all four quadrants. Patient's abdomen is soft but tender all over. Explained to patient that I would page Dr. Monahan and see what we could possibly do.
--- NOTE | 2025-06-04 12:09 | PC.NURSE ---
Per MD patient is only to receive tylenol and toradol as narcotics are contraindicated for patient care. Patient educated on the importance of getting up and ambulating. Patient ignored nurses education and didn't acknowledge education. Patient strongly encouraged again to chew gum.
--- NOTE | 2025-06-04 12:39 | PC.NURSE ---
Dr. Monahan paged at this time per patient request. Reported that patient is hysterical.
--- NOTE | 2025-06-04 12:46 | PC.NURSE ---
Patient assisted with getting up and abdominal binder placed. Patient ambulated approximately 40 steps on unit with assistance with 2 nurses and 1 nurse following behind with a wheelchair. Patient reported starting to feel dizzy. Patient assisted into wheelchair and placed back in bed with hips elevated. Patient request to remove binder, request granted.
--- NOTE | 2025-06-04 13:05 | PC.NURSE ---
Dr. Monahan at bedside.
--- NOTE | 2025-06-04 13:12 | EXP.PN ---
Subjective *Date: 06/04/25 *Time: 19:54 Interval history: 0800: Pt is in bed crying in pain. Passed flatus overnight but no additional flatus today. reports nausea. denies emesis. She has been NPO since about 0600 this morning. 1300: pt recently ambulated and endorses increased pain 2000: pain improving. having BMs Exam Data for Last 24 hours Vital signs and Labs for Last 24 Hours: Temp Pulse Resp BP Pulse Ox O2 Del Method 97.9 F 60 19 132/78 99 Room Air 06/04/25 12:45 06/04/25 12:45 06/04/25 12:45 06/04/25 12:48 06/04/25 12:45 06/04/25 12:45 Laboratory Results - last 24 hr 06/04/25 05:16: WBC 12.4 H D, RBC 4.03 L, Hgb 12.2, Hct 35.9 L, MCV 89.1, MCH 30.3, MCHC 34.0, RDW 12.3, Plt Count 344 D, MPV 10.0, Neut % (Auto) 82.2 H, Lymph % (Auto) 11.1, [place] % (Auto) 5.9, Eos % (Auto) 0.2, Baso % (Auto) 0.2, Neut # (Auto) 10.2 H, Lymph # (Auto) 1.4, [place] # (Auto) 0.7, Eos # (Auto) 0.0, Baso # (Auto) 0.0, Sodium 137, Potassium 4.0, Chloride 105, Carbon Dioxide 26, Anion Gap 10.0, BUN 7 D, Creatinine 0.60, Estimated Creat Clear 160, Estimated GFR 119, Est GFR ( Amer) 144, Glucose 106 H, Calcium 8.4, Total Bilirubin 0.4, AST 45 H, ALT 46, Alkaline Phosphatase 59, Total Protein 6.1 L, Albumin 3.5, Globulin 2.6, Albumin/Globulin Ratio 1.3 I & O for Last 24 hours: Intake & Output 06/01/25 06/02/25 06/03/25 06/04/25 23:59 23:59 23:59 23:59 Intake Total 1000 / 1000 2900 / 2900 0 / 0 Output Total 0 / 0 2100 / 2100 1500 / 1500 Balance 1000 / 1000 800 / 800 -1500 / -1500 Weight 160 lb Constitutional Constitutional: mild distress *Routine HEENT Exam Head: Present normocephalic Eye: Present EOMI and PERRL ENT: Present mucous membranes moist *Routine Neck Exam Neck: Present supple; Absent lymphadenopathy *Routine Respiratory Exam Respiratory: Present CTA bilaterally *Routine Cardiovascular Exam Cardiovascular: Present RRR *Routine Abdominal Exam Abdominal: Present tenderness and distended Comments: hypoactive bowel sounds x4 *Routine Extremities Exam Extremities: Absent cyanosis, clubbing or edema *Routine Skin Exam Skin: Present warm; Absent rash *Routine Neurological Exam Neurological: Present alert and oriented X3 Assessment and Plan *Assessment and plan (1) Paralytic ileus of large intestine: Status: Acute Category: Medical Code(s): K56.0 - Paralytic ileus (2) Ovarian cyst: Status: Acute Qualifiers: Laterality: right Qualified Code(s): N83.201 - Unspecified ovarian cyst, right side Category: Medical Code(s): N83.209 - Unspecified ovarian cyst, unspecified side (3) Abdominal pain, RLQ: Status: Acute Category: Medical Code(s): R10.31 - Right lower quadrant pain (4) Thickened small bowel: Status: Acute Category: Medical Code(s): K63.9 - Disease of intestine, unspecified (5) Constipation: Status: Acute Category: Medical Code(s): K59.00 - Constipation, unspecified Plan Fleets enema ordered general surgery consulted when pain increased plan for miralax after BM from enema Discussed large stool burden with gen surg. CBC and CMP repeated secondary to severe worsening of pain. Improvement in leukocytosis noted 1999: Improvement in pain after bowel movement. Continue following closely. Reports increased appetite which has previously been nonexistent all day
[2025-06-04] MEDS: OXYCODONE 5MG IMMEDIATE RELEASE TABLET 5 MG PO (13:13)
--- NOTE | 2025-06-04 13:30 | EXP.SURG.CON ---
History of Present Illness *Admission Date: 06/02/25 *Reason for visit:: Abdominal pain and distention postoperatively. *History of present illness: Patient is a 30-year-old female who had presented to the emergency department on 05/26/2025 with sudden onset of severe acute abdominal pain across her lower abdomen. Evaluation in the emergency department included CT scan as well as transvaginal ultrasound which were suspicious for large hemorrhagic cyst. Incidentally CT scan at that time also revealed some mildly dilated thick-walled left upper quadrant small bowel loops showing some findings of mesenteric congestion. She was admitted to the gynecology service for observation at that time and discharged the following day. Prior to her follow-up as an outpatient with gynecology she had developed continued ongoing but progressive abdominal pain and distention. Pain and distention were worse with food intake. She therefore returned to the emergency department in the afternoon of 06/02/2025. Laboratory assessment in the emergency department was unremarkable. CT angiogram of the abdomen and pelvis was remarkable only for right adnexal cyst. She was admitted to Dr. Irving with gynecology at that time. Transvaginal ultrasound revealed dominant right ovarian cystic lesion with internal debris suggesting hemorrhagic cyst. She was taken to the operating room on 06/03/2025 at which time she underwent laparoscopy and was found to have enlarged right ovary filled with some blood clot and some serosanguineous fluid measuring approximately 6 to 7 cm in size which was drained and aspirated. Early this morning on postoperative day #1 patient has developed progressive abdominal distention, hypoactive bowel sounds, and significant progressive pain. A CT scan was ordered. This reveals findings of constipation and gaseous distention of the colon, suspicious for postoperative ileus. Due to the increasing pain and distention surgery input was requested. [facility] Disclaimer: The information contained in this section may have been updated after the patient was seen, as this information can be updated by other users. Surgical History No significant past surgical history Social History (Updated 06/03/25 @ 10:30 by Gaurav Alejandro CRNA) Smoking Status: Current every day smoker alcohol intake: never substance use type: denies use current occupational status: employed and other Travel in the last 8 weeks?: None Have you lived/traveled outside [place] in past 30 days?: No Contact w/someone who lives/traveled outside [place] past 30 days?: No Exposure to someone with infectious disease in past 14 days?: No Do you have a fever (greater than 100.4 F or 38 C)?: No Have you tested positive for COVID-19?: No Exposed to someone with COVID-19 in past 14 days?: No Do you have a sore throat?: No Do you have a cough?: No Do you have any weakness?: No Do you have any diarrhea?: No Are you experiencing any unusual bleeding?: No Do you have any muscle aches/pain?: No Do you have any abdominal pain?: No Are you experiencing loss of taste or smell?: No Meds Home Medications and Allergies Home Medications ?Medication ?Instructions ?Recorded ?Confirmed ?Type No Known Home Medications 06/03/25 06/03/25 History New Prescriptions to Start Prescriptions: Allergies Allergy/AdvReac Type Severity Reaction Status Date / Time No Known Allergies Allergy Verified 05/26/25 23:17 Exam (Inpt) Vital signs and Labs for Last 24 Hours: Temp Pulse Resp BP Pulse Ox O2 Del Method 97.9 F 60 19 132/78 99 Room Air 06/04/25 12:45 06/04/25 12:45 06/04/25 12:45 06/04/25 12:48 06/04/25 12:45 06/04/25 12:45 Laboratory Results - last 24 hr 06/04/25 05:16: WBC 12.4 H D, RBC 4.03 L, Hgb 12.2, Hct 35.9 L, MCV 89.1, MCH 30.3, MCHC 34.0, RDW 12.3, Plt Count 344 D, MPV 10.0, Neut % (Auto) 82.2 H, Lymph % (Auto) 11.1, [place] % (Auto) 5.9, Eos % (Auto) 0.2, Baso % (Auto) 0.2, Neut # (Auto) 10.2 H, Lymph # (Auto) 1.4, [place] # (Auto) 0.7, Eos # (Auto) 0.0, Baso # (Auto) 0.0, Sodium 137, Potassium 4.0, Chloride 105, Carbon Dioxide 26, Anion Gap 10.0, BUN 7 D, Creatinine 0.60, Estimated Creat Clear 160, Estimated GFR 119, Est GFR ( Amer) 144, Glucose 106 H, Calcium 8.4, Total Bilirubin 0.4, AST 45 H, ALT 46, Alkaline Phosphatase 59, Total Protein 6.1 L, Albumin 3.5, Globulin 2.6, Albumin/Globulin Ratio 1.3 I & O for Labs for Last 24 Hours: Intake & Output 06/02/25 06/03/25 06/04/25 06/05/25 11:59 11:59 11:59 11:59 Intake Total 2099 1800 / 1800 Output Total 0 / 0 3600 / 3600 Balance 2099 -1799 / -1800 Weight 160 lb Constitutional: no acute distress GI: Present distention and hypoactive bowel sounds; Absent guarding or rebound Comments:: Distended, tenderness without guarding or rebound. Results Labs 06/04/25 11:34 06/04/25 11:34 Labs: Laboratory Results - last 24 hr 06/04/25 05:16: WBC 12.4 H D, RBC 4.03 L, Hgb 12.2, Hct 35.9 L, MCV 89.1, MCH 30.3, MCHC 34.0, RDW 12.3, Plt Count 344 D, MPV 10.0, Neut % (Auto) 82.2 H, Lymph % (Auto) 11.1, [place] % (Auto) 5.9, Eos % (Auto) 0.2, Baso % (Auto) 0.2, Neut # (Auto) 10.2 H, Lymph # (Auto) 1.4, [place] # (Auto) 0.7, Eos # (Auto) 0.0, Baso # (Auto) 0.0, Sodium 137, Potassium 4.0, Chloride 105, Carbon Dioxide 26, Anion Gap 10.0, BUN 7 D, Creatinine 0.60, Estimated Creat Clear 160, Estimated GFR 119, Est GFR ( Amer) 144, Glucose 106 H, Calcium 8.4, Total Bilirubin 0.4, AST 45 H, ALT 46, Alkaline Phosphatase 59, Total Protein 6.1 L, Albumin 3.5, Globulin 2.6, Albumin/Globulin Ratio 1.3 Assessment and Plan *Assessment and plan (1) Paralytic ileus of large intestine: Status: Acute Category: Medical Code(s): K56.0 - Paralytic ileus Plan I reviewed her CT scan imaging. Given the stool burden in the right colon along with gas this is likely large bowel ileus with some constipation component. This is favored with her normalization of her white blood cell count and normal vitals without tachycardia. May try enema and once clear distally could do gentle laxative. I discussed with the patient encouraging ambulation and trying to limit narcotics. Patient deserves close monitoring to rule out other pathology however this time appears to be likely adynamic colonic ileus.
[2025-06-04 13:45] LABS: Hematocrit 34.0 % (37.0-47.0); Hemoglobin 11.3 g/dL (12.2-16.2); Immature Granulocytes % 0.2 %; Mean Corpuscular HGB Conc 33.2 g/dL (31.8-35.4); Mean Corpuscular Hemoglobin 29.7 pg (27.0-31.2); Mean Corpuscular Volume 89.5 fl (81-99); Nucleated Red Blood Cells % 0 %; Platelet Count 282 K/mm3 (142-424); Red Blood Count 3.80 M/mm3 (4.20-5.40); Red Cell Distribution Width-SD 41.1 fL; White Blood Count 8.4 K/mm3 (4.8-10.8)
[2025-06-04 14:03] LABS: Alanine Aminotransferase 42 U/L (12-78); Albumin Level 3.4 g/dl (3.5-5.0); Albumin/Globulin Ratio 1.3 (1.1-1.8); Alkaline Phosphatase 67 U/L (38-126); Anion Gap 12.6 mEq/L (5-15); Aspartate Amino Transferase 38 U/L (14-36); Bilirubin,Total 0.7 mg/dl (0.2-1.3); Blood Urea Nitrogen 8 mg/dl (7-17); Calcium 8.6 mg/dl (8.4-10.2); Carbon Dioxide 24 mmol/L (22.0-30.0); Chloride 104 mmol/L (98-107); Creatinine Clearance Estimated 137 mL/min (50-200); Creatinine,Serum 0.70 mg/dl (0.52-1.04); Estimated Glomerular Filt Rate 100 ml/min (>60); GFR (African American) 121 ML/MIN (>60); Globulin 2.7 g/dL (1.3-3.2); Glucose 96 mg/dl (74-100); Potassium 3.6 mmoL/L (3.5-5.1); Sodium 137 mmol/L (136-145); Total Protein,Serum 6.1 g/dl (6.3-8.2)
--- NOTE | 2025-06-04 14:44 | PC.NURSE ---
Dr. Han at bedside.
[2025-06-04] MEDS: SODIUM PHOS/BIPHOSPHATE FLEET 133ML ENEMA 133 ML RC (15:34)
[2025-06-05] VITALS: BP 106/55; PULSE 58; RESP 16; TEMP 36.5; O2SAT 97
[2025-06-05] MEDS: ACETAMINOPHEN 1,000MG/100ML VIAL 1000 MG IV ×3 (00:01→11:55)
[2025-06-05] MEDS: SIMETHICONE 80MG CHEWABLE TABLET 160 MG PO (02:07)
[2025-06-05] MEDS: KETOROLAC 30MG/ML VIAL 30 MG IV (02:07)
[2025-06-05] MEDS: SENNOSIDES 8.6MG/DOCUSATE 50MG TABLET 1 TAB PO (02:07)
[2025-06-05] MEDS: LACTATED RINGERS 1000ML 1,000 ML 125 ML IV (03:10)
[2025-06-05 04:30] VITALS: BP 107/58; PULSE 56; RESP 16; TEMP 36.7; O2SAT 97
[2025-06-05 09:10] VITALS: BP 101/61; PULSE 59; RESP 17; TEMP 36.6; O2SAT 96
--- NOTE | 2025-06-05 09:30 | PC.NURSE ---
Spoke with Dr. Monahan at this time, Reported on bowel sounds, pain, bowel movements and patient requesting to eat. Orders for bland diet.
--- NOTE | 2025-06-05 10:13 | P.DS_ITS ---
General Admission date:: 06/02/25 Discharge date: 06/05/25 HPI HPI HPI: Patient is a 30-year-old female who had presented to the emergency department on 05/26/2025 with sudden onset of severe acute abdominal pain across her lower abdomen. Evaluation in the emergency department included CT scan as well as transvaginal ultrasound which were suspicious for large hemorrhagic cyst. Incidentally CT scan at that time also revealed some mildly dilated thick-walled left upper quadrant small bowel loops showing some findings of mesenteric congestion. She was admitted to the gynecology service for observation at that time and discharged the following day. Prior to her follow-up as an outpatient with gynecology she had developed continued ongoing but progressive abdominal pain and distention. Pain and distention were worse with food intake. She therefore returned to the emergency department in the afternoon of 06/02/2025. Laboratory assessment in the emergency department was unremarkable. CT angiogram of the abdomen and pelvis was remarkable only for right adnexal cyst. She was admitted to Dr. Irving with gynecology at that time. Transvaginal ultrasound revealed dominant right ovarian cystic lesion with internal debris suggesting hemorrhagic cyst. She was taken to the operating room on 06/03/2025 at which time she underwent laparoscopy and was found to have enlarged right ovary filled with some blood clot and some serosanguineous fluid measuring approximately 6 to 7 cm in size which was drained and aspirated. Early this morning on postoperative day #1 patient has developed progressive abdominal distention, hypoactive bowel sounds, and significant progressive pain. A CT scan was ordered. This reveals findings of constipation and gaseous distention of the colon, suspicious for postoperative ileus. Due to the increasing pain and distention surgery input was requested. Hospital Course Hospital Course Hospital Course: Presented to the ED for abdominal pain noted to have a cyst on 05/26. Discharged on 05/27. Return to the ED with persistent pain on 06/02 and taken to the OR on 1210 for diagnostic laparoscopy with ovarian cyst drainage. Postoperatively she had pain management issues and was admitted to OB for pain management. On postop day #1 she had distention, lack of bowel movement, and increased abdominal pain. CT scan was suggestive of constipation. She was given an enema with several significant bowel movements. Pain improved and her appetite returned. Patient has appropriate bowel sounds this morning. Discharge is appropriate. Discussed limited narcotics and increased ambulation as well as regular bowel movements. Follow-up in the office in [address] Irving Exam Data for Last 24 hours Vital signs and Labs for Last 24 Hours: Temp Pulse Resp BP Pulse Ox O2 Del Method 97.8 F 59 L 17 101/61 L 96 Room Air 06/05/25 09:10 06/05/25 09:10 06/05/25 09:10 06/05/25 09:10 06/05/25 09:10 06/05/25 09:10 Laboratory Results - last 24 hr 06/04/25 11:34: WBC 8.4 D, RBC 3.80 L, Hgb 11.3 L, Hct 34.0 L, MCV 89.5, MCH 29.7, MCHC 33.2, RDW 12.5, Plt Count 282, MPV 9.4, Neut % (Auto) 68.0, Lymph % (Auto) 24.3, [place] % (Auto) 6.8, Eos % (Auto) 0.5, Baso % (Auto) 0.2, Neut # (Auto) 5.7, Lymph # (Auto) 2.0, [place] # (Auto) 0.6, Eos # (Auto) 0.0, Baso # (Auto) 0.0, Sodium 137, Potassium 3.6, Chloride 104, Carbon Dioxide 24, Anion Gap 12.6, BUN 8, Creatinine 0.70, Estimated Creat Clear 137, Estimated GFR 100, Est GFR ( Amer) 121, Glucose 96, Calcium 8.6, Total Bilirubin 0.7, AST 38 H, ALT 42, Alkaline Phosphatase 67, Total Protein 6.1 L, Albumin 3.4 L, Globulin 2.7, Albumin/Globulin Ratio 1.3 I & O for Last 24 hours: Intake & Output 06/02/25 06/03/25 06/04/25 06/05/25 23:59 23:59 23:59 23:59 Intake Total 1000 / 1000 2900 / 2900 1000 / 1000 941.667 / 941.667 Output Total 0 / 0 2100 / 2100 2202 / 2203 Balance 1000 / 1000 800 / 800 -1202 / -1203 940.667 / 940.667 Weight 160 lb Constitutional Constitutional: no acute distress *Routine HEENT Exam Head: Present normocephalic Eye: Present EOMI and PERRL ENT: Present mucous membranes moist *Routine Neck Exam Neck: Present supple; Absent lymphadenopathy *Routine Respiratory Exam Respiratory: Present CTA bilaterally *Routine Cardiovascular Exam Cardiovascular: Present RRR *Routine Abdominal Exam Abdominal: Present soft and normoactive bowel sounds; Absent tenderness or distended *Routine Extremities Exam Extremities: Absent cyanosis, clubbing or edema *Routine Skin Exam Skin: Present warm; Absent rash *Routine Neurological Exam Neurological: Present alert and oriented X3 Results Data Completed and Pending Labs on day of discharge: Labs from last 24 hours 06/04/25 11:34 WBC 8.4 D RBC 3.80 L Hgb 11.3 L Hct 34.0 L MCV 89.5 MCH 29.7 MCHC 33.2 RDW 12.5 Plt Count 282 MPV 9.4 Neut % (Auto) 68.0 Lymph % (Auto) 24.3 [place] % (Auto) 6.8 Eos % (Auto) 0.5 Baso % (Auto) 0.2 Neut # (Auto) 5.7 Lymph # (Auto) 2.0 [place] # (Auto) 0.6 Eos # (Auto) 0.0 Baso # (Auto) 0.0 Sodium 137 Potassium 3.6 Chloride 104 Carbon Dioxide 24 Anion Gap 12.6 BUN 8 Creatinine 0.70 Estimated Creat Clear 137 Estimated GFR 100 Est GFR ( Amer) 121 Glucose 96 Calcium 8.6 Total Bilirubin 0.7 AST 38 H ALT 42 Alkaline Phosphatase 67 Total Protein 6.1 L Albumin 3.4 L Globulin 2.7 Albumin/Globulin Ratio 1.3 DS: Diagnosis Discharge Diagnosis (1) Paralytic ileus of large intestine: Status: Acute Code(s): K56.0 - Paralytic ileus (2) Ovarian cyst: Status: Acute Code(s): N83.209 - Unspecified ovarian cyst, unspecified side Qualifiers: Laterality: right Qualified Code(s): N83.201 - Unspecified ovarian cyst, right side (3) Abdominal pain, RLQ: Status: Acute Code(s): R10.31 - Right lower quadrant pain (4) Thickened small bowel: Status: Acute Code(s): K63.9 - Disease of intestine, unspecified (5) Constipation: Status: Acute Code(s): K59.00 - Constipation, unspecified Meds Home Medications and Allergies Home Medications ?Medication ?Instructions ?Recorded ?Confirmed ?Type acetaminophen 500 mg tablet 500 mg PO Q6H PRN fever or pain 06/05/25 Rx #30 tabs ibuprofen 800 mg tablet 800 mg PO Q8H PRN pain #60 t abs 06/05/25 Rx oxycodone 5 mg tablet 5 mg PO Q8H PRN pain #5 tabs 06/05/25 Rx polyethylene glycol 3350 17 17 g PO DAILY #119 grams 1 08/06/24 Rx gram/dose oral powder (GentleLax) sennosides 8.6 mg tablet (Senna 8.6 mg PO BIDP PRN Con stipation 06/05/25 Rx Lax) #60 tabs simethicone 125 mg tablet 125 mg PO DAILY PRN abdomina l 06/05/25 Rx distention #60 tabs New Prescriptions to Start Prescriptions: acetaminophen Hero,Dilia ibuprofen Hero,Dilia oxycodone Dilia Monahan polyethylene glycol 3350 [GentleLax] Dilia Monahan sennosides [Senna Lax] Hero,Dilia simethicone Dilia Monahan Allergies Allergy/AdvReac Type Severity Reaction Status Date / Time No Known Allergies Allergy Verified 05/26/25 23:17 Discharge Plan Disposition Patient Disposition: Home, Self-Care Discharge Order Discharge Orders: Discharge Order (Routine); Ordered 06/05/25 Ordered By: Dilia Monahan Follow up Plan Follow up with: Lalo Irving MD [Staff Physician, [employer]] - Enter time for follow up Prescriptions/Medication Reconciliation: New sennosides [Senna Lax] 8.6 mg Tablet 8.6 mg PO BIDP PRN (Reason: Constipation) Qty: 60 2RF ibuprofen 800 mg tablet 800 mg PO Q8H PRN (Reason: pain) Qty: 60 2RF acetaminophen 500 mg tablet 500 mg PO Q6H PRN (Reason: fever or pain) Qty: 30 3RF simethicone 125 mg tablet 125 mg PO DAILY PRN (Reason: abdominal distention) Qty: 60 2RF oxycodone 5 mg tablet 5 mg PO Q8H PRN (Reason: pain) Qty: 5 0RF polyethylene glycol 3350 [GentleLax] 17 gram/dose powder 17 g PO DAILY Qty: 119 0RF Problem Reconciliation Problems Reviewed?: Yes Patient Discharge Instructions ACTIVITY: Continue current activity DIET: regular diet Additional Instructions: Activity: - No lifting more than 20 lbs for 1 weeks. - No driving while you are taking narcotic pain medication. - You have 3 incisions on your abdomen that are closed with stitches and a dressing. The dressing should come off in 3-5 days. You can scrub gently in the shower Wound care - You have stitches under your skin which will dissolve over the next 4-6 weeks as your body heals - Keep your wound clean and dry, ok to wash with soap and water but pat thoroughly dry Medications: - Ibuprofen (a nonsteroidal anti-inflammatory) for pain. Please take the ibuprofen scheduled for the first 2-3 days as this will help control your pain. Ibuprofen dosing should not exceed 800 mg every 8 hours - Acetaminophen (Tylenol) for discomfort. Please take Tylenol scheduled for the first 2 to 3 days. Tylenol dosing should not exceed 1000 mg every 6 hours. Please do not consume more than 4000 mg in a 24-hour. - Oxycodone (a narcotic pain medication) use the narcotic pain medication for breakthrough or severe pain. You will want to stop the narcotic pain medication first. Narcotic pain medication can be habit forming so please only use this medication if you need it. This pain medication is also associated with constipation please remember to increase your fiber intake, and water intake. I have also given you a stool softener. You should not take more than 1-2 5 mg tablets every 6 hours for pain that rates greater than 6. - Senna (a stool softener) use this medication for constipation as needed. Narcotics can increase your risk for constipation - Simethicone: a gas medication for bloating and gas pain you may experience in the next 1-2 weeks. Please call the office or return to the ER if you have any of the followin. bleeding more than 1 pad an hour for 2 hours 2. pain that does not respond to your narcotic pain medication 3. dizziness or lightheadedness such that you lose consciousness 4. abnormal discharge that looks like pus from your incisions Questions or concerns: It is my privilege to be your doctor. Please let me know if you have other questions or concerns. Dilia Monahan DO [facility] Specialist [place], [place] [address] Print Language: Turkmen Providers Primary Care Provider: Dotty Lo Admit Provider: Lalo Irving Attending Provider: Lalo Irving
--- NOTE | 2025-06-05 10:31 | PC.NURSE ---
Patient has ate 75% of her bland diet breakfast this am. Patient reports abdomen discomfort this am- denies need for medication. Ambulating well to and from bathroom. Still having loose stools. No new needs.
--- NOTE | 2025-06-05 10:44 | PC.NURSE ---
Dr. Monahan in room at this time.
--- NOTE | 2025-06-05 13:40 | PC.NURSE ---
D/c education provided at this time. encouraged questions, she v/u
== END 2025-06-05 13:45 | disposition home or self-care (01) | DRG 742 ==
LOC: ER 16:29 → OB 17:21
PROVIDERS: Emergency Medicine; Nurse Practitioner; Obstetrics & Gynecology; Admitting Provider Nurse Practitioner Obstetrics & Gynecology; Emergency Provider Student in an Organized Health Care Education/Training Program; PCP Family Medicine; Visit Provider Nurse Practitioner Obstetrics & Gynecology
PROC: 0U904ZZ Drainage of Right Ovary, Percutaneous Endoscopic Approach (ICD-10-PCS; CPT 49320; principal; 2025-06-03 11:00)
DX: N83.201 Unspecified ovarian cyst, right side (principal); K56.0 Paralytic ileus; K59.00 Constipation, unspecified; K63.89 Other specified diseases of intestine; F17.200 Nicotine dependence, unspecified, uncomplicated
CPT/HCPCS: 36415; 74174; 74178; 76830; 80048; 80053; 81001; 81025; 83690; 83735; 85025; 96374; 99285; J0131; J1100; J1171; J1885; J2003; J2250; J2270; J2405; J2704; J2795; J3010; J7030; J7120; Q9967